=== PATIENT | male | born 1940 | race Caucasian/White ===

== ENCOUNTER 2024-03-31 13:49 | Inpatient (IN) | payer OTHER ==
[2024-03-31] MEDS ORDERED: ASPIRIN 81 MG CHEWABLE TABLET ONE (14:07)
[2024-03-31 14:30] LABS: Absolute Eosinophils 0.1 K/uL (0-0.5); Absolute Lymphocytes (CBC) 1.3 K/uL (0.7-4.9); Absolute Monocytes 0.5 K/uL (0.1-1.3); Absolute Neutrophil 2.8 K/uL (1.8-8.0); Basophils % 0.9 % (0-1.3); Eosinophils % 1.7 % (0-4.4); Hematocrit 41.5 % (39.6-49.0); Hemoglobin 13.9 g/dL (13.6-17.9); MCH 33.2 pg (27.0-35.0); MCHC 33.6 g/dL (32.0-36.0); MCV 98.9 fL (80-100); MPV 7.9 fL (7.6-11.3); Monocytes % 10.2 % (3.3-12.3); Neutrophils % 59.2 % (41.7-73.7); Platelets 195 thou/uL (152-406); Red Cell Distribution Width 13.9 % (12.1-15.2)
--- NOTE | 2024-03-31 14:43 | RAD REPORT ---
EXAM DESCRIPTION: RAD - Chest Single View - 03/31/2024 2:33 pm CLINICAL HISTORY: CHEST PAIN Chest pain. COMPARISON: <Comparisons> FINDINGS: Portable technique limits examination quality. The lungs are grossly clear. The heart is normal in size. No displaced fractures.Sternotomy wires. IMPRESSION: No acute intrathoracic process suspected.
[2024-03-31 14:46] LABS: Anion Gap 6.6 mEq/L (5.0-15.0); Magnesium 2.1 mg/dL (1.6-2.4); Potassium 4.6 mEq/L (3.5-5.1); Troponin High Sensitivity 5.9 pg/mL (<58.9)
--- NOTE | 2024-03-31 15:27 | RAD REPORT ---
EXAM DESCRIPTION: CT - Chest Abd Pelvis Wo Con - 03/31/2024 3:12 pm CLINICAL HISTORY: Chest and abdomen pain. CHEST PAIN COMPARISON: Chest Single View dated 03/31/2024; Lumbar Spine 3 Views dated 01/16/2024 TECHNIQUE: A limited noncontrast study was performed. All CT scans are performed using dose optimization technique as appropriate and may include automated exposure control or mA/KV adjustment according to patient size. FINDINGS: The lungs are clear.No pleural or pericardial effusion.No intrathoracic adenopathy. The liver, spleen, pancreas, adrenal glands are within normal limits. Cholecystectomy clips. There is a mild atrophic appearance to both kidneys. No bowel obstruction, free air, free fluid or abscess. The appendix is not identified as a discrete s tructure, however, no secondary findings of appendicitis are identified. No pathologic lymphadenopa thy in the abdomen or pelvis. Postsurgical hardware lumbar spine noted. IMPRESSION: No acute process is identified. Yrju-wd-ibrthosa bilateral renal atrophy.
--- NOTE | 2024-03-31 16:26 | P.HP ---
Certification for Inpatient Patient admitted to: Observation With expected LOS: <2 Midnights Patient will require the following post-hospital care: None Practitioner: I am a practitioner with admitting privileges, knowledge of patient current condition, hospital course, and medical plan of care. Services: Services provided to patient in accordance with Admission requirements found in Title 42 Section 412.3 of the Code of Federal Regulations Patient History Date of Service: 03/31/24 Reason for admission: Chest pain History of Present Illness: 83-year-old male with history of CAD previous four-vessel CABG in 2011, hypertension, gout presents emergency department chief complaint of chest pain. He reports an episode of chest pain on 03/29 that occurred at rest described as sharp/stabbing nonradiating that lasted for 5 to 10 minutes, this morning he had other episode while at rest that lasted 15 to 20 minutes and was more severe in nature associated with some "clamminess". He denies any shortness of breath, palpitations, nausea, vomiting or syncope. He had a four-vessel CABG in 2011 and has not had any further cardiac evaluation since then, he moved to this area about 1 year ago. Patient was evaluated in the emergency department initial high sensitive troponin normal 5.9, creatinine 1.75, no labs available for comparison unsure baseline although CT does show mild to moderate bilateral renal atrophy. ED provider wishes to be patient under observation for ACS rule out. - Past Medical/Surgical History -: CAD -: Hypertension -: Gout -: 2012 CABGfour-vessel Psychosocial/ Personal History: Lives at home with his and son - Family History Family History: Reviewed- Non-Contributory - Social History Smoking Status: Never smoker Alcohol use: No CD- Drugs: No Caffeine use: Yes Place of Residence: Home Review of Systems 10-point ROS is otherwise unremarkable Cardiovascular: Chest Pain Physical Examination - Physical Exam General: Alert, In no apparent distress, Oriented x3 HEENT: Atraumatic, PERRLA, Mucous membr. moist/pink, EOMI, Sclerae nonicteric Neck: Supple, 2+ carotid pulse no bruit, No LAD Respiratory: Clear to auscultation bilaterally, Normal air movement Cardiovascular: Regular rate/rhythm, Normal S1 S2 Gastrointestinal: Normal bowel sounds, No tenderness Musculoskeletal: No tenderness Integumentary: No rashes Neurological: Normal gait, Normal speech, Normal strength at 5/5 x4 extr, Normal tone, Normal affect - Studies Laboratory Data (last 24 hrs) 03/31/24 03/31/24 14:16 14:16 WBC 4.70 Hgb 13.9 Hct 41.5 Plt Count 195 Sodium 139 Potassium 4.6 BUN 28 H Creatinine 1.75 H Glucose 102 Magnesium 2.1 Assessment and Plan - Plan Assessment: Chest pain rule out ACS history of CAD with previous CABG-2011 SALAZAR/CKD Hypertension Hyperlipidemia Gout Plan: Chest pain rule out ACS history of CAD with previous CABG-2011 Trend troponins, monitor on telemetry Cardiology consult in place Continue aspirin, statin, ranolazine SALAZAR/CKD Atrophic kidneys on CT Suspect CKD although patient has no known history Continue gentle IV fluids overnight Recheck imaging the morning Hypertension Hyperlipidemia Home medications continued DVT PPX: Heparin subcu Code status: Full Discharge Plan: Home Plan to discharge in: 24 Hours - Advance Directives Does patient have a Living Will: No Does patient have a Durable POA for Healthcare: Yes - Code Status/Comfort Care Code Status Assessed: Yes (Full code) Critical Care: No Time Spent Managing Pts Care (In Minutes): 70
[2024-03-31] MEDS: NA CHLORIDE 0.9% 1,000 ML IV SCH (17:00)
[2024-03-31] MEDS ORDERED: NA CHLORIDE 0.9% 1,000 ML ONE (17:22)
--- NOTE | 2024-03-31 18:11 | ER ---
Nurse's Notes [facility] Name: Aaron Thomas Age: 83 yrs Sex: Male : 1940 Arrival Date: 03/31/2024 Time: 13:49 Bed 17 Private MD: Diagnosis: Chest pain, unspecified;Acute kidney failure, unspecified-acute vs chronic Presentation: 03/31 13:52 Chief complaint: Patient states: CP 1 episode on Saturday. Again, today. Coronavirus ll1 screen: Client denies travel out of the [place] in the last 14 days. At this time, the client does not indicate any symptoms associated with coronavirus-19. Ebola Screen: Patient denies travel to an Ebola-affected area in the 21 days before illness onset. Initial Sepsis Screen: Does the patient meet any 2 criteria? No. Patient's initial sepsis screen is negative. Does the patient have a suspected source of infection? No. Patient's initial sepsis screen is negative. Risk Assessment: Do you want to hurt yourself or someone else? Patient reports no desire to harm self or others. Onset of symptoms was March 29, 2024. 13:52 Method Of Arrival: Wheelchair ll1 13:52 Acuity: MAYCOL 3 ll1 Triage Assessment: 13:56 General: Appears in no apparent distress. Behavior is calm, cooperative, appropriate ll1 for age. Pain: Denies pain. Cardiovascular: Reports chest pain. Historical: - Allergies: 13:51 No Known Allergies; ll1 - PMHx: 13:51 Hypertensive disorder; Coronary atherosclerosis; ll1 - PSHx: 13:51 cabg; ll1 - Immunization history:: Adult Immunizations up to date. - Infectious Disease History:: Denies. - Social history:: Smoking status: Patient denies any tobacco usage or history of. Screenin:19 [facility] ED Fall Risk Assessment (Adult) History of falling in the last 3 months, mb9 including since admission No falls in past 3 months (0 pts) Confusion or Disorientation No (0 pts) Intoxicated or Sedated No (0 pts) Impaired Gait No (0 pts) Mobility Assist Device Used No (0 pt) Altered Elimination No (0 pt) Score/Fall Risk Level 0 - 2 = Low Risk Oriented to surroundings, Maintained a safe environment, Educated pt \T\ family on fall prevention, incl call for assistance when getting out of bed. Abuse screen: Denies threats or abuse. Nutritional screening: No deficits noted. Tuberculosis screening: No symptoms or risk factors identified. Assessment: 14:18 General: Appears in no apparent distress. Behavior is calm, cooperative. Pain: mb9 Complains of pain in chest Pain does not radiate. Pain currently is 0 out of 10 on a pain scale. Quality of pain is described as throbbing, Pain began suddenly. Neuro: Richards Agitation-Sedation Scale (RASS): 0 - Alert and Calm Level of Consciousness is awake, alert, obeys commands, Oriented to person, place, time, situation, Appropriate for age. Cardiovascular: Heart tones S1 S2 present Patient's skin is warm and dry. Rhythm is sinus bradycardia with 1st degree heart block. Respiratory: Airway is patent Respiratory effort is even, unlabored, Respiratory pattern is regular, symmetrical, Breath sounds are clear bilaterally. GI: Abdomen is round non-distended, Bowel sounds present X 4 quads. : No signs and/or symptoms were reported regarding the genitourinary system. EENT: No signs and/or symptoms were reported regarding the EENT system. Derm: Skin is pink, warm \T\ dry. Musculoskeletal: Range of motion: intact in all extremities. 15:37 Reassessment: No changes from previously documented assessment. Patient and/or family mb9 updated on plan of care and expected duration. Pain level reassessed. Patient is alert, oriented x 3, equal unlabored respirations, skin warm/dry/pink. Neuro: Reports dizziness. 17:00 Reassessment: No changes from previously documented assessment. Patient and/or family mb9 updated on plan of care and expected duration. Pain level reassessed. Patient is alert, oriented x 3, equal unlabored respirations, skin warm/dry/pink. Vital Signs: 13:52 BP 122 / 76; Pulse 60; Resp 17; Pulse Ox 100% ; Weight 97.07 kg; Height 5 ft. 9 in. ; ll1 Pain 1/10; 15:37 BP 109 / 52; Pulse 51; Resp 16; Pulse Ox 99% on R/A; mb9 17:00 BP 91 / 65; Pulse 52; Resp 18; Pulse Ox 100% on R/A; mb9 13:52 Body Mass Index 31.60 (97.07 kg, 175.26 cm) ll1 13:52 Pain Scale: Adult ll1 ED Course: 13:51 Patient arrived in ED. rg4 13:51 Arm band placed on. ll1 13:52 Lilly Rivera FNP-C is [facility]. kb 13:52 Taz Hong MD is Attending Physician. kb 13:53 Triage completed. ll1 13:54 Brittney Frost, RN is Primary Nurse. mb9 13:57 Patient placed in an exam room, on a stretcher. ll1 14:10 Initial lab(s) drawn, by me, sent to lab. EKG done, by ED staff, reviewed by Lilly MORALEZ. Inserted saline lock: 18 gauge in left antecubital area, using aseptic technique. 14:20 Placed in gown. Bed in low position. Call light in reach. Side rails up X 1. Provided adriana Education on: press call light if needing anything. Client placed on continuous cardiac and pulse oximetry monitoring. NIBP monitoring applied. cell feed department supervisor on. 14:35 XRAY Chest (1 view) In Process Unspecified. EDMS 15:14 CT Chest Abdomen Pelvis W/O Contrast In Process Unspecified. EDMS 15:52 Ken Hong MD is Hospitalizing Provider. kb 15:57 No provider procedures requiring assistance completed. mb9 15:57 Patient admitted, IV remains in place. mb9 Administered Medications: 14:18 Drug: Aspirin PO Chewable Tablet 324 mg PO once; 81 mg tablets x 4 Route: PO; mb9 Medication: 14:20 VIS not applicable for this client. mb9 Outcome: 15:54 Decision to Hospitalize by Provider. kb 20:02 Admitted to ER Hold. Please see [facility] for further documentation. mb9 20:02 Condition: stable 20:02 Instructed on the need for admit, 04/01 16:27 Patient left the ED. bp Signatures: Dispatcher [employer] EDMS Lilly Rivera FNP-C FNP-Drea Hodge rg4 Wes Martin, RN RN bp Rocco Gray RN RN ll1 Brittney Frost, RN RN adriana
--- NOTE | 2024-03-31 18:12 | EDPHYS ---
Physician Documentation [facility] Name: Aaron Thomas Age: 83 yrs Sex: Male : 1940 Arrival Date: 03/31/2024 Time: 13:49 Bed 17 Private MD: ED Physician Taz Hong HPI: 03/31 16:51 This 83 yrs old Male presents to ER via Wheelchair with complaints of Chest Pain. kb 16:51 Pt is an 83 year old male who presents for chest pain to left side of chest. States he kb had it on Saturday but it went away. States the pain came back worse today. States he was told he has something in his chest that could rupture if it got 2cm bigger so he wanted to make sure everything was ok. Historical: - Allergies: 13:51 No Known Allergies; ll1 - PMHx: 13:51 Hypertensive disorder; Coronary atherosclerosis; ll1 - PSHx: 13:51 cabg; ll1 - Immunization history:: Adult Immunizations up to date. - Infectious Disease History:: Denies. - Social history:: Smoking status: Patient denies any tobacco usage or history of. ROS: 14:47 Constitutional: As per HPI kb Exam: 14:10 Constitutional: This is a well developed, well nourished patient who is awake, alert, kb and in no acute distress. Head/Face: Normocephalic, atraumatic. ENT: Moist Mucous membranes Cardiovascular: Regular rate Respiratory: Respirations even and unlabored. No increased work of breathing. Talking in full sentences Abdomen/GI: Soft, non-tender. No distention Skin: Warm, dry with normal turgor. Normal color. MS/ Extremity: Pulses equal, no cyanosis. Neurovascular intact. Full, normal range of motion. Neuro: Awake and alert, GCS 15, oriented to person, place, time, and situation. Moves all extremities. Normal gait. 14:12 ECG was reviewed by the Attending Physician. kb Vital Signs: 13:52 BP 122 / 76; Pulse 60; Resp 17; Pulse Ox 100% ; Weight 97.07 kg; Height 5 ft. 9 in. ; ll1 Pain 1/10; 15:37 BP 109 / 52; Pulse 51; Resp 16; Pulse Ox 99% on R/A; mb9 17:00 BP 91 / 65; Pulse 52; Resp 18; Pulse Ox 100% on R/A; mb9 13:52 Body Mass Index 31.60 (97.07 kg, 175.26 cm) ll1 13:52 Pain Scale: Adult ll1 MDM: 13:52 Patient medically screened. kb 16:50 Differential diagnosis: acute mi, AAA, arrhythmia, abnormal electrolytes. Data kb reviewed: vital signs, nurses notes. Consideration of Admission/Observation Patient was admitted/placed on observation. Escalation of care including admission/observation considered. Management of patient was discussed with the following: Hospitalist: Hospitalist team, pt accepted for admission under Dr Hong. Historians other than the Patient: Spouse/Significant Other: . Care significantly affected by the following chronic conditions: Hypertension. Counseling: I had a detailed discussion with the patient and/or guardian regarding the historical points, exam findings, and any diagnostic results supporting the discharge/admit diagnosis, lab results, radiology results, the need for further work-up and treatment in the hospital. 03/31 13:54 Order name: Basic Metabolic Panel; Complete Time: 14:46 kb 03/31 13:54 Order name: CBC with Diff; Complete Time: 14:45 kb 03/31 13:54 Order name: Magnesium; Complete Time: 14:46 kb 03/31 13:54 Order name: NT PRO-BNP; Complete Time: 14:46 kb 03/31 13:54 Order name: Troponin HS; Complete Time: 14:46 kb 03/31 16:12 Order name: Troponin High Sensitivity EDUT 03/31 16:12 Order name: Troponin High Sensitivity; Complete Time: 21:25 EDMS 03/31 16:12 Order name: Troponin High Sensitivity; Complete Time: 13:16 EDMS 04/01 02:55 Order name: CBC with Automated Diff; Complete Time: 13:16 EDMS 04/01 03:02 Order name: Basic Metabolic Panel; Complete Time: 13:16 EDMS 04/01 03:02 Order name: Lipid Profile; Complete Time: 13:16 EDMS 03/31 13:54 Order name: XRAY Chest (1 view); Complete Time: 14:45 kb 03/31 14:54 Order name: CT Chest Abdomen Pelvis W/O Contrast; Complete Time: 15:36 kb 03/31 13:54 Order name: EKG; Complete Time: 13:55 kb 06/18 13:54 Order name: Cardiac monitoring; Complete Time: 14:18 kb 03/31 13:54 Order name: EKG - Nurse/Tech; Complete Time: 14:18 kb 03/31 13:54 Order name: IV Saline Lock; Complete Time: 14:18 kb 03/31 13:54 Order name: Labs collected and sent; Complete Time: 14:18 kb 03/31 13:54 Order name: O2 Per Protocol; Complete Time: 14:18 kb 03/31 13:54 Order name: O2 Sat Monitoring; Complete Time: 14:18 kb EC:12 Rate is 54 beats/min. Rhythm is regular. QRS [place] is Normal. MS interval is prolonged kb at 242 msec. QRS interval is normal at 96 msec. QT interval is normal at 402 msec. Administered Medications: 14:18 Drug: Aspirin PO Chewable Tablet 324 mg PO once; 81 mg tablets x 4 Route: PO; mb9 Disposition Summary: 03/31/24 15:54 Hospitalization Ordered Notes: Hospitalization Status: Observation kb Provider: Ken Hong Condition: Stable kb Problem: new kb Symptoms: are unchanged kb Bed/Room Type: Standard kb Location: Telemetry/MedSurg (observation)(04/01/24 14:57) bd Room Assignment: 220(04/01/24 14:57) bd Diagnosis - Chest pain, unspecified kb - Acute kidney failure, unspecified - acute vs chronic kb Forms: - Medication Reconciliation Form kb - SBAR form kb - Leadership Thank You Letter kb Addendum: 04/06/2024 08:56 Co-signature as Attending Physician, Taz Hong MD I reviewed the patient's care r n provided by the Advanced Practice Provider and agree with the diagnosis and treatment plan. Signatures: Dispatcher [employer] EDUT Lilly Rivera, FIELD INTERVIEWER-C FIELD INTERVIEWER-Ckb Sachi Urrtuia Roman, MD MD rn Lewis, Lynsay RN RN ll1 Margot, Brittney Shearer RN RN mb9 Corrections: (The following items were deleted from the chart) 03/31 13:55 13:55 BASIC METABOLIC PANEL+C.LAB.BRZ ordered. EDMS EDMS 13:55 13:55 CBC+H.LAB.BRZ ordered. EDMS EDMS 13:55 13:55 MAGNESIUM+C.LAB.BRZ ordered. EDMS EDMS 13:55 13:55 PROBNP+C.LAB.BRZ ordered. EDMS EDMS 13:55 13:55 Troponin High Sensitivity+C.LAB.BRZ ordered. EDMS EDMS 17:26 15:54 Telemetry/MedSurg (observation) kb bd 17: 15:54 kb bd 04/01 11:15 06 17:26 [facility] ER HOLD bd 04/01 11:15 03/31 17:26 ERHOLD- bd 04/01 11:18 11:15 Telemetry/MedSurg (observation) bd bd 11:18 11:15 221 bd bd 14:57 11:18 [facility] ER HOLD bd bd 14:57 11:18 ERHOLD- bd bd
[2024-03-31] MEDS ORDERED: TAMSULOSIN 0.4 MG SR CAP ONE (20:38)
[2024-03-31] MEDS ORDERED: ATORVASTATIN 40 MG TAB ONE (20:38)
[2024-03-31] MEDS ORDERED: HEPARIN 5000 UNIT/ML 1 ML VIAL ONE (20:39)
[2024-03-31] MEDS: HEPARIN 5000 UNIT/ML 1 ML VIAL SQ SCH (20:54)
[2024-03-31] MEDS: ATORVASTATIN 40 MG TAB PO SCH (20:54)
[2024-03-31] MEDS: TAMSULOSIN 0.4 MG SR CAP PO SCH (20:54)
[2024-04-01 02:47] LABS: Absolute Basophils 0.1 K/uL (0-0.5); Absolute Eosinophils 0.1 K/uL (0-0.5); Absolute Lymphocytes (CBC) 1.8 K/uL (0.7-4.9); Absolute Monocytes 0.5 K/uL (0.1-1.3); Absolute Neutrophil 3.7 K/uL (1.8-8.0); Basophils % 0.8 % (0-1.3); Eosinophils % 2.1 % (0-4.4); Hematocrit 38.7 % (39.6-49.0); Hemoglobin 13.5 g/dL (13.6-17.9); Lymphocytes % 29.3 % (15.3-44.8); MCHC 34.9 g/dL (32.0-36.0); MCV 97.5 fL (80-100); MPV 7.9 fL (7.6-11.3); Monocytes % 8.8 % (3.3-12.3); Nucleated Red Blood Cells % 0.4 % (0-0); Platelets 179 thou/uL (152-406); RBC Red Blood Cell Count 3.97 M/uL (4.33-5.43)
[2024-04-01 02:59] LABS: Troponin High Sensitivity 7.8 pg/mL (<58.9)
[2024-04-01] MEDS ORDERED: NA CHLORIDE 0.9% 1,000 ML ONE (06:03)
[2024-04-01] MEDS: ASPIRIN EC 81 MG TAB PO SCH (09:00)
[2024-04-01] MEDS: allopurinoL 100 MG TAB PO SCH (09:00)
[2024-04-01] MEDS ORDERED: HEPARIN 5000 UNIT/ML 1 ML VIAL ONE (09:12)
[2024-04-01] MEDS ORDERED: ASPIRIN EC 81 MG TAB PO ONE (09:12)
--- NOTE | 2024-04-01 13:37 | P.PN ---
Date of Service: 04/01/24 Subjective: No acute events overnight No further episode of chest pain ROS: 10 point ROS as noted above, otherwise negative Physical exam GEN: Alert, oriented, NAD HEENT: Normal conjunctiva, sclera anicteric CV: Regular rate and rhythm, no edema Pulm: Nonlabored respirations on room air ABD: Soft, nontender, nondistended MSK: No joint tenderness Integumentary: No rashes Neuro: Normal speech, normal affect Vitals reviewed Assessment: Chest pain rule out ACS history of CAD with previous CABG-2011 SALAZAR/CKD Hypertension Hyperlipidemia Gout Plan: Chest pain rule out ACS history of CAD with previous CABG-2011 Troponins trended negative, flat Cardiology saw patient recommends stress test inpatient Plan for stress test 04/02 Continue aspirin, statin, ranolazine SALAZAR/CKD Atrophic kidneys on CT Suspect CKD although patient has no known history Continue gentle IV fluids overnight-no significant improvement Monitor chemistry daily Hypertension Hyperlipidemia Home medications continued DVT PPX: Heparin subcu Code status: Lathe Turner Spent Managing Pts Care (In Minutes): 35
--- NOTE | 2024-04-01 16:56 | P.CNS ---
Date of Consult: 04/01/24 Chief Complaint: Chest pain History of Present Illness: Patient with PMH of CAD s/p 4V CABG in 2011 presented with chest pain that happened yesterday lasted for 10 minutes, felt shart in nature, no other associated symptoms, report that it has been going on/off for few months. Allergies No Known Allergies Allergy (Unverified 03/31/24 17:22) Home Medications: Atorvastatin Calcium 40 mg PO DAILY 03/31/24 Ranolazine [Ranolazine ER] 500 mg PO BID* 03/31/24 Tamsulosin HCl [Flomax] 0.4 mg PO DAILY 03/31/24 Temazepam 30 mg PO DAILY 03/31/24 allopurinoL [Allopurinol] 100 mg PO DAILY 03/31/24 - Past Medical/Surgical History -: CAD -: Hypertension -: Gout -: 2011 CABGfour-vessel Psychosocial/ Personal History: Lives at home with his and son - Social History Alcohol use: No CD- Drugs: No Caffeine use: Yes Place of Residence: Home Review of Systems 10-point ROS is otherwise unremarkable Physical Examination Temp Pulse Resp BP Pulse Ox 97.6 F 53 16 151/78 H 98 04/01/24 16:00 04/01/24 16:00 04/01/24 16:00 04/01/24 16:00 04/01/24 16:00 General: Alert, In no apparent distress HEENT: Atraumatic, PERRLA, Mucous membr. moist/pink, EOMI, Sclerae nonicteric Neck: Supple, 2+ carotid pulse no bruit, No LAD, Without JVD or thyroid abnormality Respiratory: Clear to auscultation bilaterally, Normal air movement Cardiovascular: Regular rate/rhythm, Normal S1 S2 Gastrointestinal: Normal bowel sounds, No tenderness Musculoskeletal: No tenderness Integumentary: No rashes Neurological: Normal gait, Normal speech, Normal tone, Normal affect Lymphatics: No axilla or inguinal lymphadenopathy - Problems (1) CAD (coronary artery disease) of artery bypass graft Current Visit: Yes Status: Acute Plan: patient with symptoms concerned for unstable angina. NPO after midnight for Lexiscan stress test in am. Continue ASA 81 mg daily Continue Ranexa 500 mg po BID add Imdur 30 mg daily (2) HTN (hypertension) Current Visit: Yes Status: Acute Plan: Patient BP is high, add Imdur 30 mg daily (3) HLD (hyperlipidemia) Current Visit: Yes Status: Acute Plan: Lipitor 40 mg daily
[2024-04-01] MEDS: TEMAZEPAM 15 MG CAP PO PRN (20:34)
[2024-04-02 08:25] LABS: Absolute Eosinophils 0.1 K/uL (0-0.5); Absolute Monocytes 0.4 K/uL (0.1-1.3); Absolute Neutrophil 3.5 K/uL (1.8-8.0); Eosinophils % 2.4 % (0-4.4); Hematocrit 40.8 % (39.6-49.0); Hemoglobin 13.9 g/dL (13.6-17.9); Lymphocytes % 20.6 % (15.3-44.8); MCH 33.4 pg (27.0-35.0); MCHC 34.1 g/dL (32.0-36.0); MCV 98.1 fL (80-100); MPV 7.8 fL (7.6-11.3); Monocytes % 7.9 % (3.3-12.3); Neutrophils % 68.1 % (41.7-73.7); Platelets 182 thou/uL (152-406); RBC Red Blood Cell Count 4.16 M/uL (4.33-5.43); Red Cell Distribution Width 14.1 % (12.1-15.2)
[2024-04-02 08:48] LABS: Anion Gap 8.4 mEq/L (5.0-15.0); Potassium 4.4 mEq/L (3.5-5.1)
[2024-04-02] MEDS ORDERED: REGADENOSON 0.4 MG/5 ML SYR IV ONE (09:40)
--- NOTE | 2024-04-02 11:12 | RAD REPORT ---
EXAM DESCRIPTION: NM - Rest Stress Cardiac Imaging - 04/02/2024 10:18 am CLINICAL HISTORY: CP COMPARISON: No comparisons TECHNIQUE: The patient was administered approximately 10.7 mCi of Tc 99m Sestamibi prior to resting SPECT imaging of the heart. The patient was then administered approximately 31.6 mCi of Tc 99m Sestam ibi following exercise or pharmacologic stress. Multiplanar SPECT images were reviewed. FINDINGS: Moderate lateral wall mid to apical reversible defect suggesting ischemia. Small fixed def ect along the mid to basal septal and large fixed defect along the inferior wall, suggesting sequelae of prior infarct. The end diastolic volume is 78 ml, the end systolic volume is 26 ml, and the ejection fraction is 66 %. IMPRESSION: Moderate lateral wall mid to apical segment reversible defect suggesting myocardial isch emia. Other fixed defects involving the septum and inferior wall, suggesting prior infarct. Normal left ventricular ejection fraction. Decreased end systolic volume, may relate to longstanding hypertension.
--- NOTE | 2024-04-02 11:43 | P.PN ---
Subjective Date of Service: 04/02/24 Chief Complaint: Chest pain Subjective: No new changes, No C/O voiced, Tolerating diet, Ambulating, Improving Review of Systems 10-point ROS is otherwise unremarkable Physical Examination - Vital Signs Temperature: 97.5 F Blood Pressure: 146/71 Pulse: 53 Respirations: 15 Pulse Ox (%): 99 - Physical Exam General: Alert, In no apparent distress HEENT: Atraumatic, PERRLA, EOMI Neck: Supple, JVD not distended Respiratory: Clear to auscultation bilaterally, Normal air movement Cardiovascular: Regular rate/rhythm, Normal S1 S2 Gastrointestinal: Normal bowel sounds, No tenderness Musculoskeletal: No tenderness Integumentary: No rashes Neurological: Normal speech, Normal tone, Normal affect Lymphatics: No axilla or inguinal lymphadenopathy - Studies Laboratory Data (last 24 hrs) 04/02/24 04/02/24 08:14 08:14 WBC 5.10 Hgb 13.9 Hct 40.8 Plt Count 182 Sodium 139 Potassium 4.4 BUN 30 H Creatinine 1.74 H Glucose 108 H Medications List Reviewed: Yes Assessment And Plan - Current Problems (Diagnosis) (1) CAD (coronary artery disease) of artery bypass graft Current Visit: Yes Status: Acute Plan: patient with symptoms concerned for unstable angina. Patient stress test is abnormal showing ischemia in lateral wall NPO after midnight for Cath in am Continue ASA 81 mg daily Start Plavix 75 mg daily Continue Ranexa 500 mg po BID add Imdur 30 mg daily (2) HTN (hypertension) Current Visit: Yes Status: Acute Plan: Patient BP is high, add Imdur 30 mg daily (3) HLD (hyperlipidemia) Current Visit: Yes Status: Acute Plan: Lipitor 40 mg daily
--- NOTE | 2024-04-02 11:51 | TREADPHA ---
DX: CHEST PAIN Date of Study: 04/02/2024 Ht: 5' 9 " Wt: 214 lb 0 oz Consulting Physician: MARCIO MEDICATIONS: ZYLOPRIM, ASPIRIN, LIPITOR, HEPARIN, RANEXA, FLOMAX, RESTORIL HISTORY: 83 YEAR OLD MALE WITH COMPLAINTS OF CHEST PAIN. HISTORY OF TRIPLE BYPASS, HYPERTENSION, DIABETES MELLITUS, HIGH CHOLERTEROL. PATIENT IS A NON SMOKER, NON DRINKER AND DOES NOT CONSUME DRUGS. PHYSICIAL EXAMINATION: RESTING B.P.: 125/63 RESTING H.R.: 52 RESTING EKG: SINUS BRADYCARDIA PROTOCOL: PHARMACOLOGIC EXERCISE TIME: 3:30 B.P. AT PEAK STRESS: 109/51 IMPRESSION: LEXISCAN INJECTED. CARDIOLITE INJECTED - SEE NUCLEAR MEDICINE REPORT. NO CHEST PAIN. NO VENTRICULAR TACHYCARDIA, NO SUPRAVENTRICULAR TACHYCARDIA. PREMATURE VENTRICULAR COMPLEXES NOTED DURING THE PROCEDURE AND IN RECOVERY.
[2024-04-02] MEDS: CLOPIDOGREL 75 MG TABLET PO ONE (13:16)
--- NOTE | 2024-04-02 13:39 | P.PN ---
Date of Service: 04/02/24 Subjective: No acute events overnight No further episode of chest pain ROS: 10 point ROS as noted above, otherwise negative Physical exam GEN: Alert, oriented, NAD HEENT: Normal conjunctiva, sclera anicteric CV: Regular rate and rhythm, no edema Pulm: Nonlabored respirations on room air ABD: Soft, nontender, nondistended MSK: No joint tenderness Integumentary: No rashes Neuro: Normal speech, normal affect Vitals reviewed Assessment: Chest pain rule out ACS history of CAD with previous CABG-2011 SALAZAR/CKD Hypertension Hyperlipidemia Gout Plan: Chest pain rule out ACS history of CAD with previous CABG-2011 Troponins trended negative, flat Continue aspirin, statin, ranolazine Stress test showed moderate lateral wall mid to apical segment reversible defect suggesting myocardial ischemia Started on Plavix, Imdur Plan for heart cath 04/03 SALAZAR/CKD Atrophic kidneys on CT Suspect CKD although patient has no known history Continue gentle IV fluids overnight-no significant improvement Monitor chemistry daily Hypertension Hyperlipidemia Home medications continued DVT PPX: Heparin subcu 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
--- NOTE | 2024-04-02 16:21 | EKG ---
Test Date: 2024-03-31 Test Time: 14:06:52 E M Assembler: YOMI MEASUREMENT RESULTS: Intervals: Rate: 54 RI: 242 QRSD: 96 QT: 424 QTc: 402 [place]: P: 12 RI: 242 QRS: -11 T: 18 INTERPRETIVE STATEMENTS: Sinus bradycardia with 1st degree AV block Otherwise normal ECG No previous ECG available for comparison Electronically Signed On 04-02-24 16:17:28 CDT by Jethro Hills
[2024-04-03 04:07] LABS: Hematocrit 39.7 % (39.6-49.0); Hemoglobin 13.9 g/dL (13.6-17.9); MCHC 35.1 g/dL (32.0-36.0); MPV 7.7 fL (7.6-11.3); Platelets 199 thou/uL (152-406); RBC Red Blood Cell Count 4.09 M/uL (4.33-5.43); Red Cell Distribution Width 13.8 % (12.1-15.2)
[2024-04-03 04:10] LABS: Anion Gap 6.9 mEq/L (5.0-15.0); Potassium 3.9 mEq/L (3.5-5.1)
[2024-04-03] MEDS: ISOSORBIDE MONO SR 30 MG TAB PO SCH (08:41)
[2024-04-03] MEDS: ISOSORBIDE MONO SR 30 MG TAB PO ONE (08:41)
[2024-04-03] MEDS: CLOPIDOGREL 75 MG TABLET PO SCH (08:41)
[2024-04-03] MEDS ORDERED: HEPA 1000U/500MLS 2,000 UNIT/1,000 ML BAG IV ONE (12:27)
[2024-04-03] MEDS ORDERED: FENTANYL CITR 100 MCG/2 ML ONE (12:28)
[2024-04-03] MEDS ORDERED: TICAGRELOR 90 MG TABLET PO ONE (12:28)
[2024-04-03] MEDS ORDERED: LIDOCAINE 1% 20 ML MDV ONE (12:28)
[2024-04-03] MEDS ORDERED: HEPARIN 10,000 UNIT/10 ML VIAL IV ONE (12:28)
[2024-04-03] MEDS ORDERED: MIDAZOLAM HCL 2 MG/2 ML INJ ONE (12:28)
[2024-04-03] MEDS ORDERED: CLOPIDOGREL 75 MG TABLET ONE (12:28)
[2024-04-03] MEDS ORDERED: ASPIRIN 325 MG TAB ONE (12:29)
[2024-04-03] MEDS ORDERED: ATROPINE SULF 1 MG/10 ML SYR IV ONE (12:30)
[2024-04-03] MEDS ORDERED: FLUMAZENIL 0.1 MG/ML (5 mL VIAL) IV ONE (12:31)
[2024-04-03] MEDS ORDERED: NALOXONE 0.4 MG/ML VIAL ONE (12:31)
[2024-04-03] MEDS: NA CHLORIDE 0.9% 500 ML ONE (12:34)
[2024-04-03] MEDS ORDERED: HEPA 1000U/500MLS 1,000 UNIT/500 ML BAG IV ONE (13:29)
--- NOTE | 2024-04-03 13:53 | PN ---
Date of Progress Note: 04/03/2024 Subjective: Seen by bedside, is having on and off chest pain. Stress test showed moderate size reve rsible ischemia. Review of Systems: Positive for chest pain. No shortness of breath. No nausea, vomiting, diarrhea. No abdominal pain. No dysuria, polyuria, or urinary urgency. All other systems were reviewed, they are negative. Physical Examination: Vital Signs: Reviewed. Head and Neck: Pupils are equal, reactive to light. Intact eye movements. No JVD. No cervical lym phadenopathy. Neck is supple. Thyroid is not enlarged. Lungs: Clear to auscultation bilaterally. No rhonchi, wheezing, or crackles. No accessory muscle u se. Heart: Regular. No extra sounds. Abdomen: Soft, nontender. Bowel sounds positive. No organomegaly. No masses or hernia. No rigidi ty or rebound. Extremities: No clubbing, cyanosis. Intact pulses. Skin: No rash. Neuro: Alert, awake, and oriented x3. No acute focal deficits appreciated. Investigations: Troponins are negative. BUN 30, creatinine 0.74. Assessment/recommendations: 1.Unstable angina with abnormal stress test. The patient is n.p.o. Plan for coronary angiogram wit h bypass graft study today and intervene accordingly. 2.Dyslipidemia. Continue Lipitor 40 mg at bedtime. 3.Chronic renal failure. Creatinine is stable. We will try to use a minimal amount of contrast with the procedure and with hydration. 4.Hypertension. Blood pressure is controlled. SR/MODL Voice ID: [id number] Report ID: [id number]
[2024-04-03] MEDS ORDERED: NITROGLYCERIN 0.4 MG/TAB SL PRN (14:09)
[2024-04-03] MEDS ORDERED: ACETAMINOPHEN 325 MG TABLET PO PRN (14:09)
--- NOTE | 2024-04-03 16:05 | OP ---
Date of Procedure: 04/03/2024 Surgeon: ARMANDO RICHARDSON Procedure Performed: Selective coronary angiogram with bypass graft study. Indication: Unstable angina. Abnormal stress test. Access: Right common femoral artery 6-Barbadian closed with 6-Barbadian Angio-Seal. Complications: None. Bleeding: Less than 50 mL. Anesthesia: Total sedation time was 50 minutes. Used fentanyl and Versed. Total amount of contrast used was 70 mL. Description Of Procedure: After risks and benefits and alternatives were explained, patient agreed t o procedure and signed informed consent. Patient was brought into cardiac catheterization laboratory , prepped and draped in the usual sterile fashion. Then, I accessed the right common femoral artery using micropuncture kit, ultrasound guidance, and fluoroscopy, placed 6-Barbadian Mauldin sheath and to ok a 6-Barbadian JL4 catheter into the aortic root and engaged the left main, took standard views and th en engaged the RCA with a 6-Barbadian JR4 catheter and took standard views of the RCA. SVG grafts, they were all occluded and then using an YESSENIA catheter, engaged GEORGES and took standard views and the jake ter was pushed over the wire into the LV, measured the LVEDP. Pullback did not record any gradient a nd then removed the catheter and the sheath 6-Barbadian, Angio-Seal was used for closure with good hemos tasis. Findings: 1.Left main; large and normal. 2.LAD; proximal diffuse 40% stenosis, then after diagonal takeoff, it become YOUTH MINISTRY DIRECTOR. Diagonal has mid 70% stenosis. 3.Ramus intermedius has mid 70% stenosis. 4.Left circumflex; large vessel, 70% stenosis proximally and 90% mid to distal. 5.RCA; totally occluded ostial proximally. Bypass Graft Study: 1.Patent GEORGES to LAD. 2.Occluded SVG to RCA. 3.Occluded SVG to ramus. 4.Occluded SVG to left circumflex. 5.Elevated LVEDP at 15 mmHg. Conclusion: Severe [place] coronary artery disease with occluded 3 SVG grafts and patent GEORGES and the LAD is giving collaterals to the RCA. Recommendation: Plan for a PCI of the ramus left circumflex and the diagonal 1 branch on staged basi s. We did not do any of those today due to the contrast load, given the fact that he has significant chronic kidney disease, I had to stop the procedure, given that there were no critical lesions, and we will plan on bringing him back on Saturday to fix first the circ and ramus and then we will fix the diagonal at later occasion. /CARMEN Voice ID: [id number] Report ID: [id number]
[2024-04-03 16:32] VITALS: BMI 31.6
--- NOTE | 2024-04-03 17:59 | P.PN ---
Date of Service: 04/03/24 Subjective: No acute events overnight No further episode of chest pain Heart cath today +, needs intervention but staged ROS: 10 point ROS as noted above, otherwise negative Physical exam GEN: Alert, oriented, NAD HEENT: Normal conjunctiva, sclera anicteric CV: Regular rate and rhythm, no edema Pulm: Nonlabored respirations on room air ABD: Soft, nontender, nondistended MSK: No joint tenderness Integumentary: No rashes Neuro: Normal speech, normal affect Vitals reviewed Assessment: Chest pain rule out ACS history of CAD with previous CABG-2011 SALAZAR/CKD Hypertension Hyperlipidemia Gout Plan: Chest pain rule out ACS history of CAD with previous CABG-2011 Troponins trended negative, flat Continue aspirin, statin, ranolazine Stress test showed moderate lateral wall mid to apical segment reversible defect suggesting myocardial ischemia Started on Plavix, Imdur Heart cath 04/03 with indings: 1. Left main; large and normal. 2. LAD; proximal diffuse 40% stenosis, then after diagonal takeoff, it become PECAN HULLER. Diagonal has mid 70% stenosis. 3. Ramus intermedius has mid 70% stenosis. 4. Left circumflex; large vessel, 70% stenosis proximally and 90% mid to distal. 5. RCA; totally occluded ostial proximally. Bypass Graft Study: 1. Patent GEORGES to LAD. 2. Occluded SVG to RCA. 3. Occluded SVG to ramus. 4. Occluded SVG to left circumflex. 5. Elevated LVEDP at 15 mmHg. 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
--- NOTE | 2024-04-04 07:54 | P.PN ---
Date of Service: 04/04/24 Subjective: No acute events overnight No further episode of chest pain Had heart cath yesterday, needs staged cath saturday for intervention ROS: 10 point ROS as noted above, otherwise negative Physical exam GEN: Alert, oriented, NAD HEENT: Normal conjunctiva, sclera anicteric CV: Regular rate and rhythm, no edema Pulm: Nonlabored respirations on room air ABD: Soft, nontender, nondistended MSK: No joint tenderness Integumentary: No rashes Neuro: Normal speech, normal affect Vitals reviewed Assessment: Chest pain rule out ACS history of CAD with previous CABG-2011 SALAZAR/CKD Hypertension Hyperlipidemia Gout Plan: Chest pain rule out ACS history of CAD with previous CABG-2011 Troponins trended negative, flat Continue aspirin, statin, ranolazine Stress test showed moderate lateral wall mid to apical segment reversible defect suggesting myocardial ischemia Started on Plavix, Imdur Heart cath 04/03 with indings as follows: 1. Left main; large and normal. 2. LAD; proximal diffuse 40% stenosis, then after diagonal takeoff, it become PAINTING WORKER. Diagonal has mid 70% stenosis. 3. Ramus intermedius has mid 70% stenosis. 4. Left circumflex; large vessel, 70% stenosis proximally and 90% mid to distal. 5. RCA; totally occluded ostial proximally. Bypass Graft Study: 1. Patent GEORGES to LAD. 2. Occluded SVG to RCA. 3. Occluded SVG to ramus. 4. Occluded SVG to left circumflex. 5. Elevated LVEDP at 15 mmHg. Plan for a PCI of the ramus left circumflex and the diagonal 1 branch on staged basis Plan is for staged cath on Friday 04/06 for intervention and will need additional staged cath at a later date outpatient Patient awaiting cath/intervention, NPO after midnight on saturday-order placed SALAZAR/CKD Atrophic kidneys on CT Suspect CKD although patient has no known history Continue gentle IV fluids overnight-no significant improvement Monitor chemistry daily Nephrology now consulted given need for contrast with heart cath and planned staged heart cath Saturday Hypertension Hyperlipidemia Home medications continued DVT PPX: Heparin subcu Code status: Backside Grinder Spent Managing Pts Care (In Minutes): 35
[2024-04-04 08:03] LABS: Hematocrit 37.9 % (39.6-49.0); Hemoglobin 13.2 g/dL (13.6-17.9); MCH 34.2 pg (27.0-35.0); MCHC 34.8 g/dL (32.0-36.0); MCV 98.4 fL (80-100); MPV 7.8 fL (7.6-11.3); Platelets 163 thou/uL (152-406); RBC Red Blood Cell Count 3.85 M/uL (4.33-5.43); Red Cell Distribution Width 14.1 % (12.1-15.2)
[2024-04-04 08:14] LABS: Anion Gap 7.1 mEq/L (5.0-15.0); Potassium 4.1 mEq/L (3.5-5.1)
--- NOTE | 2024-04-04 19:22 | CON ---
Date of Consultation: 04/04/2024 Reason For Consultation: Chronic renal insufficiency. History Of Present Illness: Mr. Thomas is an 83-year-old male with past medical history significant fo r history of coronary artery disease, status post CABG in the past, presented to [facility] because of ongoing chest pain. He reported an episode of chest pain that occurred at rest, which he describes as sharp, stabbing, nonradiating, and he has been admitted to the hospital since the March and has been evaluated by Dr. Hills and underwent a heart catheterization yesterday. He was found to have occluded bypass graft to his obtuse marginal as well as his right RCA. The patient is planned to have staged catheterization to help improve his coronary circulation. However, Nephrology is being consulted for management of his CKD and to optimize his renal status. The patient denies a ny chest pain, shortness of breath, and feels okay at this time. Past Medical History: Significant for history of coronary artery disease, hypertension, history of s tatus post CABG, gout. Social History: He lives at home with his and son. No history of alcohol or current drug abuse reported. Review of Systems: As per history of present illness. Medications: Home medications have been reviewed. Current medications include allopurinol, aspirin, Plavix, heparin for DVT prophylaxis, isosorbide 30 mg a day, normal saline at 75 cc an hours, Ranexa, tamsulosin, and Restoril. Physical Examination: Vital Signs: Showing temperature of 98, pulse rate of 70, respirations of 16, blood pressure 101/62. General: He appears in no acute distress. HEENT: Atraumatic head. Lungs: Clear to auscultation. Abdomen: Soft and nontender. Extremities: Showed no evidence of edema. Laboratory Data: At this time showing creatinine stable at 1.7, sodium of 139, and potassium of 4.1. CBC showing stable hemoglobin, hematocrit, and platelet count. Impression: Chronic renal insufficiency, currently with overall stable renal function. Discussed wi th him the risk of contrast-induced nephropathy. The patient is on hydration and blood pressures are stable. No acute congestive heart failure symptoms noted. Volume status seems euvolemic. I will c ontinue with IV fluids and go ahead and Mucomyst for renal protection in anticipation of contrast adm inistration. Otherwise, his blood pressure seems to be stable and his hemoglobin and other level see ms to be stable. We discussed with him the risk of contrast-induced nephropathy. The patient unders tands and we will continue to monitor him closely. Thank you very much for this consultation. Please do not hesitate to call us with any questions or c oncerns. RAFAT/CARMEN Voice ID: [id number] Report ID: [id number]
[2024-04-04] MEDS: ACETYLCYST 20% 800 MG/4 ML VIAL PO SCH (20:35)
[2024-04-05 07:44] LABS: Hematocrit 34.3 % (39.6-49.0); Hemoglobin 12.2 g/dL (13.6-17.9); MCH 35.1 pg (27.0-35.0); MCHC 35.5 g/dL (32.0-36.0); MCV 98.8 fL (80-100); MPV 7.9 fL (7.6-11.3); Platelets 149 thou/uL (152-406); RBC Red Blood Cell Count 3.47 M/uL (4.33-5.43)
[2024-04-05 08:02] LABS: Anion Gap 5.9 mEq/L (5.0-15.0); Potassium 3.9 mEq/L (3.5-5.1)
--- NOTE | 2024-04-05 14:35 | PN ---
Date of Progress Note: 04/05/2024 Subjective: The patient was seen and examined at bedside. He has intermittent episodes of chest ganesh n, but denies any other issues at this time. Blood pressures continued to be on the lower side. Physical Examination: Vital Signs: Have been reviewed. General: He appears in no acute distress. Lungs: Clear to auscultation. Abdomen: Soft, nontender. Extremities: Showed no evidence of edema. Laboratory Data: Showing creatinine improving to 1.59, BUN of 25. Other electrolytes are stable. H emoglobin, hematocrit, and platelet count have remained stable. Current Medications: Reviewed. Impression: 1.Acute on chronic renal insufficiency, currently with stable renal function overall. The patient h as been optimized in terms of his renal status for contrast administration. Discussed risk of contra st-induced nephropathy. 2.Hypotension. Continue IV fluids. 3.Coronary artery disease with obstructive cardiomyopathy. The patient is planned for a stent place ment. Continue low-dose isosorbide and Plavix at this time. Plan: Overall, patient is clinically stable. Continue to monitor closely. Follow up on labs and av oid further hypotension and nephrotoxins. VV/MODL Voice ID: [id number] Report ID: [id number]
--- NOTE | 2024-04-05 16:06 | P.PN ---
Date of Service: 04/05/24 Subjective: Continue left-sided chest pain Saturday needs staged heart cath intervention No new complaints ROS: 10 point ROS as noted above, otherwise negative Physical exam GEN: AAOx3, NAD, conversing well HEENT: Normal conjunctiva, sclera anicteric CV: RRR, S1-S2 present, no edema Pulm: Nonlabored respirations, symmetrical chest wall movement, on room air ABD: Soft and benign on palpation, NT/ND MSK: No joint tenderness Integumentary: No rashes Neuro: Normal speech, normal affect Vitals reviewed Assessment: Chest pain rule out ACS history of CAD with previous CABG-2011 SALAZAR/CKD Hypertension Hyperlipidemia Gout Plan: Chest pain rule out ACS history of CAD with previous CABG-2011 Troponins trended negative, flat Continue aspirin, statin, ranolazine Stress test showed moderate lateral wall mid to apical segment reversible defect suggesting myocardial ischemia Started on Plavix, Imdur Heart cath 04/03 with indings as follows: 1. Left main; large and normal. 2. LAD; proximal diffuse 40% stenosis, then after diagonal takeoff, it become HEMODIALYSIS PATIENT CARE SPECIALIST. Diagonal has mid 70% stenosis. 3. Ramus intermedius has mid 70% stenosis. 4. Left circumflex; large vessel, 70% stenosis proximally and 90% mid to distal. 5. RCA; totally occluded ostial proximally. Bypass Graft Study: 1. Patent GEORGES to LAD. 2. Occluded SVG to RCA. 3. Occluded SVG to ramus. 4. Occluded SVG to left circumflex. 5. Elevated LVEDP at 15 mmHg. Plan for a PCI of the ramus left circumflex and the diagonal 1 branch on staged basis Plan is for staged cath on Friday 04/06 for intervention and will need additional staged cath at a later date outpatient Patient awaiting cath/intervention, NPO after midnight on saturday-order placed SALAZAR/CKD Atrophic kidneys on CT Suspect CKD although patient has no known history Continue gentle IV fluids Monitor chemistry daily- stable Nephrology-mucomyst (consulted given need for contrast with heart cath and planned staged heart cath Saturday) Hypertension Hyperlipidemia Home medications continued DVT PPX: Heparin subcu Code status: Full
--- NOTE | 2024-04-05 18:35 | PN ---
Date of Progress Note: 04/05/2024 Subjective: Seen by bedside. He has been having on and off chest pain still. Review of Systems: No active pain at the present time. No nausea, vomiting, or diarrhea. No abdominal pain. No dysuri a, polyuria, or urinary urgency. All other systems reviewed are negative. Physical Examination: Vital Signs: Reviewed. Head and Neck: Pupils are equal, reactive to light. Intact eye movements. No JVD. No cervical lym phadenopathy. Neck: Supple. Thyroid is not enlarged. Lungs: Clear to auscultation bilaterally. No rhonchi, wheezing, rales, or crackles. No accessory m uscle use. Heart: Regular rate and rhythm. No extra sounds. Abdomen: Soft, nontender. Bowel sounds positive. No organomegaly. No masses or hernia. No rigidi ty or rebound. Extremities: No clubbing, clubbing, or cyanosis. Intact pulses. Skin: No rash. Neuro: Alert, awake, and oriented x3. No acute focal deficits appreciated. Investigations: BUN 25, creatinine 1.59. Hemoglobin is 12.2. Assessment And Recommendations: 1.Unstable angina. Significant coronary artery disease is present. Status post coronary angiogram. He will need intervention of his circ and the diagonal branch. We will plan for fixing the circ to mays. The procedure was not done on Saturday due to the contrast load and the chronic kidney disease . Keep n.p.o. past midnight. We will plan for PCI of the circumflex tomorrow. Continue aspirin and Plavix. 2.Dyslipidemia. Continue Lipitor 40 mg q.h.s. 3.Chronic kidney disease. This is stabilizing. His creatinine is better. We will plan for PCI of the left circumflex tomorrow. 4.Hypertension. Blood pressure is controlled. SR/MODL Voice ID: [id number] Report ID: [id number]
[2024-04-06 08:56] LABS: Absolute Eosinophils 0.1 K/uL (0-0.5); Absolute Monocytes 0.6 K/uL (0.1-1.3); Absolute Neutrophil 4.3 K/uL (1.8-8.0); Basophils % 0.5 % (0-1.3); Eosinophils % 1.6 % (0-4.4); Hematocrit 34.5 % (39.6-49.0); Lymphocytes % 16.1 % (15.3-44.8); MCH 34.5 pg (27.0-35.0); MCHC 34.9 g/dL (32.0-36.0); MCV 98.9 fL (80-100); MPV 7.9 fL (7.6-11.3); Monocytes % 10.5 % (3.3-12.3); Neutrophils % 71.3 % (41.7-73.7); Platelets 146 thou/uL (152-406); RBC Red Blood Cell Count 3.49 M/uL (4.33-5.43); Red Cell Distribution Width 13.8 % (12.1-15.2)
[2024-04-06 09:16] LABS: Magnesium 1.7 mg/dL (1.6-2.4); Phosphorus 2.4 mg/dL (2.5-4.9)
[2024-04-06 10:09] LABS: PT Prothrombin Time 11.6 SECONDS (9.4-12.5); PTT, Activated Partial Thromb 32.1 SECONDS (24.3-36.9); Protime INR 1.06
[2024-04-06] MEDS ORDERED: LIDOCAINE 1% 20 ML MDV ONE (14:40)
[2024-04-06] MEDS ORDERED: HEPA 1000U/500MLS 2,000 UNIT/1,000 ML BAG IV ONE (14:41)
[2024-04-06] MEDS ORDERED: VERAPAMIL HCL 10 MG/4 ML VIAL IV ONE (15:02)
[2024-04-06] MEDS ORDERED: MIDAZOLAM HCL 2 MG/2 ML INJ ONE (15:03)
[2024-04-06] MEDS ORDERED: TICAGRELOR 90 MG TABLET PO ONE (15:03)
[2024-04-06] MEDS ORDERED: ATROPINE SULF 1 MG/10 ML SYR IV ONE (15:03)
[2024-04-06] MEDS ORDERED: FENTANYL CITR 100 MCG/2 ML ONE (15:03)
[2024-04-06] MEDS ORDERED: HEPARIN 5000 UNIT/ML 1 ML VIAL ONE (15:03)
[2024-04-06] MEDS ORDERED: CLOPIDOGREL 75 MG TABLET ONE (15:04)
[2024-04-06] MEDS ORDERED: ASPIRIN 325 MG TAB ONE (15:04)
[2024-04-06] MEDS ORDERED: HEPARIN 10,000 UNIT/10 ML VIAL IV ONE (15:04)
[2024-04-06] MEDS ORDERED: NA CHLORIDE 0.9% 500 ML ONE (15:05)
--- NOTE | 2024-04-06 17:50 | OP ---
Date of Procedure: 04/06/2024 Surgeon: ARMANDO RICHARDSON Procedures Performed: 1.Selective coronary angiogram. 2.PCI of severe proximal to mid left circumflex, I used 2.5 x 16 mm Synergy drug-eluting stent overl apped distally using 2.25 x 8 mm Synergy drug-eluting stent. 3.PCI of severe proximal ramus intermedius stenosis, I used 2.5 x 60 mm Synergy drug-eluting stent. Indication: Unstable angina and known coronary artery disease. Access: Right radial artery 6-Wallisian closed with TR band. Complications: None. Bleeding: Less than 50 mL. Anesthesia: Total sedation time was 50 minutes. I used fentanyl and Versed. Description Of Procedure: After risks, benefits, and alternatives were explained, the patient agreed to procedure and signed informed consent. The [facility], prepped and draped in the usual sterile fashion. Then, I accessed right radial artery using pediatric micropuncture kit, placed a 6-Wallisian Slender sheath and took 6-Wallisian EBU3.5 guide into the aortic root, engaged left main, took standard views, and gave systemic heparin to assure ACT level a crystal 250 throughout the procedure, took Runthrough wire into the left circumflex artery, placed it di iveth and using a 2.5 balloon, the lesions were pre-dilated and expanded easily. I then placed 2.5 x 60 mm Synergy drug-eluting stent across the left circumflex stenosis and still some significant dis ease with some edge dissection, so I placed 2.25 x 8 mm Synergy drug-eluting stent with excellent exp ansion. Then I took a Runthrough wire out and placed it within the ramus intermedius and performed b alloon angioplasty using 2.5 x 8 noncompliant balloon and then placed 2.5 x 60 mm Synergy drug-elutin g stent with excellent expansion. Final angiogram after removing the wire was satisfactory and then I removed the catheter and the sheath, placed TR band with good hemostasis. Findings: 1.Left main is normal. 2.LAD; proximal 40% and then mid PLANNING MANAGEMENT IT SPECIALIST and diagonal has mid 70% to 80% stenosis. 3.Ramus intermedius has proximal 80% stenosis. 4.Left circumflex; mid 90% stenosis, status post successful PCI as above of the ramus and the left c ircumflex. 5.RCA was not injected, known to be occluded. Conclusion: 1.Severe left circumflex and ramus intermedius stenosis, status post successful PCI as above. 2.Severe diagonal branch stenosis. We will plan for staged PCI in 6 weeks. SR/MODL Voice ID: [id number] Report ID: [id number]
--- NOTE | 2024-04-06 19:04 | P.PN ---
Date of Service: 04/06/24 Subjective: Awake and no new complaints NPO this AM Awaiting heart cath ROS: 10 point ROS as noted above, otherwise negative Physical exam GEN: Awake, alert and oriented x3, NAD, conversing well HEENT: Normal conjunctiva, sclera anicteric CV: Regular rate and rhythm, normal S1-S2 present, no edema Pulm: Nonlabored respirations, symmetrical chest wall movement, on room air ABD: Soft and benign on palpation, NT/ND, normal active bowel sounds MSK: No joint tenderness Integumentary: No rashes Neuro: Normal speech, normal affect Vitals reviewed Assessment: Chest pain rule out ACS history of CAD with previous CABG-2011 SALAZAR/CKD Hypertension Hyperlipidemia Gout Plan: Chest pain rule out ACS history of CAD with previous CABG-2011 S/P PCI to Ramus and left circumflex Troponins trended negative, flat Continue aspirin, statin, ranolazine Stress test showed moderate lateral wall mid to apical segment reversible defect suggesting myocardial ischemia Started on Plavix, Imdur Heart cath 04/03 with indings as follows: 1. Left main; large and normal. 2. LAD; proximal diffuse 40% stenosis, then after diagonal takeoff, it become MEDICAL FILE CLERK. Diagonal has mid 70% stenosis. 3. Ramus intermedius has mid 70% stenosis. 4. Left circumflex; large vessel, 70% stenosis proximally and 90% mid to distal. 5. RCA; totally occluded ostial proximally. Bypass Graft Study: 1. Patent GEORGES to LAD. 2. Occluded SVG to RCA. 3. Occluded SVG to ramus. 4. Occluded SVG to left circumflex. 5. Elevated LVEDP at 15 mmHg. Plan for a PCI of the ramus left circumflex and the diagonal 1 branch on staged basis Plan is for staged cath on Friday 04/06 for intervention and will need additional staged cath at a later date outpatient Heart cath late in the day 04/06- PCI x2 Staged PCI in 6 weeks SALAZAR/CKD Atrophic kidneys on CT Suspect CKD although patient has no known history Continue gentle IV fluids Monitor chemistry daily- stable Nephrology-mucomyst (consulted given need for contrast with heart cath and planned staged heart cath Saturday) Hypertension Hyperlipidemia Home medications continued DVT PPX: Heparin subcu Code status: Full
--- NOTE | 2024-04-06 20:57 | P.PN ---
Date of Service: 04/06/24 Vital Signs Temp Pulse Resp BP Pulse Ox 97.0 F 54 16 150/68 H 97 04/06/24 16:43 04/06/24 18:28 04/06/24 18:28 04/06/24 18:28 04/06/24 12:00 Medications Acetaminophen (Acetaminophen 325 Mg Tablet) 650 mg PO Q3HP PRN PRN Reason: TEMP > 101' F Allopurinol (Allopurinol 100 Mg Tab) 100 mg PO DAILY COUNTS INCLUDE 234 BEDS AT THE [facility] Last Admin: 04/06/24 08:18 Dose: Not Given Aspirin (Aspirin Ec 81 Mg Tab) 81 mg PO DAILY COUNTS INCLUDE 234 BEDS AT THE [facility] Last Admin: 04/06/24 08:15 Dose: 81 mg Atorvastatin Calcium (Atorvastatin 40 Mg Tab) 40 mg PO BEDTIME COUNTS INCLUDE 234 BEDS AT THE [facility] Last Admin: 04/05/24 20:33 Dose: 40 mg Clopidogrel Bisulfate (Clopidogrel 75 Mg Tablet) 75 mg PO DAILY COUNTS INCLUDE 234 BEDS AT THE [facility] Last Admin: 04/06/24 08:18 Dose: Not Given Heparin Sodium (Porcine) (Heparin 5000 Unit/Ml 1 Ml Vial) 5,000 unit SQ Q12HR COUNTS INCLUDE 234 BEDS AT THE [facility] Last Admin: 04/06/24 08:18 Dose: Not Given Sodium Chloride (Ns 1000 Ml Ivbag) 1,000 mls @ 75 mls/hr IV .[id number] COUNTS INCLUDE 234 BEDS AT THE [facility] Last Admin: 04/06/24 06:20 Dose: Not Given Isosorbide Mononitrate (Isosorbide [place] Sr 30 Mg Tab) 30 mg PO DAILY COUNTS INCLUDE 234 BEDS AT THE [facility] Last Admin: 04/06/24 08:18 Dose: Not Given Nitroglycerin (Nitroglycerin 0.4 Mg/Tab) 0.4 mg SL UD PRN PRN Reason: Pain scale 2-4 (Mild) Ranolazine (Ranolazine 500 Mg Tab) 500 mg PO BID COUNTS INCLUDE 234 BEDS AT THE [facility] Last Admin: 04/06/24 08:14 Dose: 500 mg Tamsulosin HCl (Tamsulosin 0.4 Mg Sr Cap) 0.4 mg PO BEDTIME COUNTS INCLUDE 234 BEDS AT THE [facility] Last Admin: 04/05/24 20:34 Dose: 0.4 mg Temazepam (Temazepam 15 Mg Cap) 30 mg PO BEDTIME PRN PRN PRN Reason: INSOMNIA Last Admin: 04/05/24 22:26 Dose: 30 mg Assessment/ Plan: Nephrology No dyspnea No chest pain Back pain No acute events overnight Vitals, medications, blood work and imaging reviewed in the chart NAD. MMM. NCAT. Normal Respiratory Effort. S1S2. ND Abd. No C/C/E. No rash. AAO. Normal speech. Brown light Stage I SALAZAR CKD III -No NSAIDs -Change IVF to LR Hypophosphatemia -Replete prn -Encourage nutrition HTN with CKD -Continue Imdur Anemia in chronic illness -Monitor H&H BPH with LUTS -Continue tamsulosin Hospitalist and Cardiology notes reviewed
[2024-04-06] MEDS: Ringers Lactate 1,000 ML IV SCH (21:00)
--- NOTE | 2024-04-06 21:22 | PN ---
Date of Progress Note: 04/06/2024 Subjective: Seen at bedside. Continues to have chest pain on and off with activities. No shortness of breath. No nausea, vomiting, diarrhea. No abdominal pain. All other systems reviewed and negat mayra. Physical Examination: Vital Signs: Reviewed. Head and Neck: Pupils are equal, reactive to light. Intact eye movements. No JVD. No cervical lym phadenopathy. Neck: Supple. Thyroid is not enlarged. Lungs: Clear to auscultation bilaterally. No rhonchi, rales, or crackles. No accessory muscle use. Heart: Regular rate and rhythm. No extra sounds. Abdomen: Soft, nontender. Bowel sounds positive. No organomegaly. No masses or hernia. No rigidi ty or rebound. Extremities: No edema, clubbing, cyanosis. Intact pulses. Skin: No rashes. Neurologic: Alert, awake, oriented x3. No acute focal deficits appreciated. Investigation: Labs reviewed. Assessment And Recommendation: 1.Coronary artery disease with chest pain. Severe left circumflex stenosis, ramus intermedius, and diagonal branch. We will plan for percutaneous coronary intervention of the ramus and the circumflex today, and staged diagonal to be done at a later time. Continue aspirin, Plavix, and statin. 2.Dyslipidemia. Continue Lipitor 40 mg q.h.s. 3.Chronic renal failure. His creatinine has improved. We will plan for coronary angiogram today an d percutaneous coronary intervention as above. 4.Hypertension. Blood pressure controlled. Continue current management. /CARMEN Voice ID: [id number] Report ID: [id number]
[2024-04-07 01:29] VITALS: O2SAT 94
[2024-04-07 04:41] VITALS: TEMP 98.4
[2024-04-07 04:42] LABS: Albumin 3.1 g/dL (3.4-5.0); Anion Gap 9.7 mEq/L (5.0-15.0); Bilirubin Total 0.9 mg/dL (0.2-1.0); Globulin 3.2 g/dL (2.3-3.5); Phosphorus 2.4 mg/dL (2.5-4.9); Potassium 3.7 mEq/L (3.5-5.1); Protein, Total 6.3 g/dL (6.4-8.2); Uric Acid 4.6 mg/dL (3.5-7.2)
[2024-04-07 08:23] VITALS: BP 123/63
[2024-04-07] MEDS: POTASSIUM CL SA 10 MEQ TAB PO ONE (09:14)
--- NOTE | 2024-04-07 09:16 | P.DS ---
Admission Date: 04/02/24 Discharge Date: 04/07/24 Disposition: ROUTINE DISCHARGE Discharge Condition: GOOD Reason for Admission: Chest pain Brief History of Present Illness: Diagnosis Chest pain rule out ACS history of CAD with previous CABG-2011 SALAZAR/CKD Hypertension Hyperlipidemia Gout HPI 03/31/24 Aaron Thomas is an 83-year-old male with history of CAD previous four-vessel CABG in 2011, hypertension, gout presents emergency department chief complaint of chest pain. He reports an episode of chest pain on 03/29 that occurred at rest described as sharp/stabbing nonradiating that lasted for 5 to 10 minutes, this morning he had other episode while at rest that lasted 15 to 20 minutes and was more severe in nature associated with some "clamminess". He denies any shortness of breath, palpitations, nausea, vomiting or syncope. He had a four- vessel CABG in 2011 and has not had any further cardiac evaluation since then, he moved to this area about 1 year ago. Patient was evaluated in the emergency department initial high sensitive troponin normal 5.9, creatinine 1.75, no labs available for comparison unsure baseline although CT does show mild to moderate bilateral renal atrophy. ED provider wishes to be patient under observation for ACS rule out. Hospital Course: Aaron Thomas is a pleasant 83 year old male with a past medical history significant for CAD previous four-vessel CABG in 2011, hypertension, gout who was admitted to the [facility] on chest pain for 03/31/24. Aaron Thomas presented to the ED with sharp/stabbing nonradiating chest pain. Cardiology was consulted and a heart catheterization was performed 04/06 with two stents placed. An additional heart catheterization will be needed in six weeks. Please follow up with Dr. Hills in one week for close management and scheduling of additional procedures. He is tolerating p.o. diet, ambulating independently, urinating without difficulty, and tolerated heart catheterization procedure well. He is hemodynamically stable and ready for discharge On 04/07/2024, Aaron was seen on morning rounds and deemed medically stable for discharge. Aaron was discharged with instructions to schedule follow-up appointments with PCP and Dr. Hills. Aaron was provided prescriptions for aspirin, Imdur, Plavix. The patient and family members were given the opportunity to ask questions and reported no further questions. Furthermore, all questions were answered to the best of my ability. A copy of this discharge summary will be sent to the above providers to facilitate continuity of care. Physical exam GEN: Alert and oriented x3, NAD, conversing well HEENT: Normal conjunctiva, sclera anicteric CV: RRR, normal S1-S2, no edema Pulm: Nonlabored respirations, symmetrical chest wall movement, on room air ABD: Soft and benign on palpation, nontender/nondistended, normal active bowel sounds MSK: No joint tenderness Integumentary: No rashes Neuro: Normal speech, normal affect Vital Signs/Physical Exam: Temp Pulse Resp BP Pulse Ox 98.4 F 67 16 123/63 97 04/07/24 08:00 04/07/24 08:00 04/07/24 08:00 04/07/24 08:00 04/07/24 08:00 Laboratory Data at Discharge: WBC 6.00 thou/uL (4.3-10.9) 04/06/24 08:44 Hgb 12.0 g/dL (13.6-17.9) L 04/06/24 08:44 Hct 34.5 % (39.6-49.0) L 04/06/24 08:44 Plt Count 146 thou/uL (152-406) L 04/06/24 08:44 PT 11.6 SECONDS (9.4-12.5) 04/06/24 09:53 INR 1.06 04/06/24 09:53 APTT 32.1 SECONDS (24.3-36.9) 04/06/24 09:53 Sodium 139 mEq/L (136-145) 04/07/24 03:39 Potassium 3.7 mEq/L (3.5-5.1) 04/07/24 03:39 BUN 21 mg/dL (7-18) H 04/07/24 03:39 Creatinine 1.62 mg/dL (0.70-1.30) H 04/07/24 03:39 Glucose 99 mg/dL (74-106) 04/07/24 03:39 Uric Acid 4.6 mg/dL (3.5-7.2) 04/07/24 03:39 Phosphorus 2.4 mg/dL (2.5-4.9) L 04/07/24 03:39 Magnesium 1.7 mg/dL (1.6-2.4) 04/06/24 08:44 Total Bilirubin 0.9 mg/dL (0.2-1.0) 04/07/24 03:39 AST 18 U/L (15-37) 04/07/24 03:39 ALT 27 U/L (16-61) 04/07/24 03:39 Alkaline Phosphatase 113 U/L (45-117) 04/07/24 03:39 Triglycerides 170 mg/dL (<150) H 04/01/24 02:09 Cholesterol 103 mg/dL (<200) 04/01/24 02:09 HDL Cholesterol 37 mg/dL (40-60) L 04/01/24 02:09 Cholesterol/HDL Ratio 2.78 04/01/24 02:09 Home Medications: Atorvastatin Calcium 40 mg PO DAILY 03/31/24 Ranolazine [Ranolazine ER] 500 mg PO BID* 03/31/24 Tamsulosin HCl [Flomax] 0.4 mg PO DAILY 03/31/24 Temazepam 30 mg PO DAILY 03/31/24 allopurinoL [Allopurinol] 100 mg PO DAILY 03/31/24 Aspirin [Aspirin EC 81 MG] 81 mg PO DAILY 30 Days #30 tab 04/07/24 Clopidogrel Bisulfate [Plavix*] 75 mg PO DAILY 30 Days #30 tab 04/07/24 Isosorbide Mononitrate [Isosorbide Mononitrate ER] 30 mg PO DAILY 30 Days #30 tab 04/07/24 allopurinoL [Zyloprim*] 100 mg PO DAILY tab 04/07/24 New Medications: Aspirin [Aspirin EC 81 MG] 81 mg PO DAILY 30 Days #30 tab Isosorbide Mononitrate [Isosorbide Mononitrate ER] 30 mg PO DAILY 30 Days #30 tab Clopidogrel Bisulfate [Plavix*] 75 mg PO DAILY 30 Days #30 tab Physician Discharge Instructions: Aaron Thomas presented to the ED with chest pain. A heart catheterization was performed 04/06 with two stents placed. An additional heart catheterization will be needed in six weeks. Please follow up with Dr. Hills in one week for close management and scheduling of additional procedures. 1. Please call and schedule a follow-up appointment with your PCP in 3-5 days - Please follow-up with your PCP for medication refills/adjustments 2. Please call and schedule a follow-up appointment with Dr. Hills in one week -will need another heart cath in six weeks, that will be scheduled at your one week appointment -Medications provided today will be managed by Dr. Hills, please review these with him at your visit. 3. Continue heart healthy diet 4. activity restrictions do not lift greater than 8 pounds 5. Return to the ED if symptoms worsen New medications Imdur 30 mg daily aspirin 81 mg daily plavix 75 mg daily Followup: Jonas Prieto MD [Primary Care Provider] - 1-2 Weeks Jethro Hills MD [ACTIVE - CAN ADMIT] - 1 Week
== END 2024-04-07 10:08 | disposition home or self-care (01) | DRG 322 ==
LOC: ER 13:49 → ERHOLD 16:10 → 2ND 04-01 11:24 → 4TH 04-01 12:55 → ERHOLD 04-01 12:57 → 2ND 04-01 15:38 → OBSVTOIN 04-02 11:23
PROVIDERS: ADMIT Hospitalist; ATTEND Internal Medicine
PROC: 027034Z Dilation of Coronary Artery, One Artery with Drug-eluting Intraluminal Device, Percutaneous Approach (ICD-10-PCS; principal; 2024-04-06)
PROC: 027035Z Dilation of Coronary Artery, One Artery with Two Drug-eluting Intraluminal Devices, Percutaneous Approach (ICD-10-PCS; 2024-04-06)
PROC: 4A023N7 Measurement of Cardiac Sampling and Pressure, Left Heart, Percutaneous Approach (ICD-10-PCS; 2024-04-06)
PROC: B2111ZZ Fluoroscopy of Multiple Coronary Arteries using Low Osmolar Contrast (ICD-10-PCS; 2024-04-06)
DX: I25.110 Atherosclerotic heart disease of native coronary artery with unstable angina pectoris (principal); N17.9 Acute kidney failure, unspecified; M10.9 Gout, unspecified; E78.5 Hyperlipidemia, unspecified; I12.9 Hypertensive chronic kidney disease with stage 1 through stage 4 chronic kidney disease, or unspecified chronic kidney disease; N18.30 Chronic kidney disease, stage 3 unspecified; D63.1 Anemia in chronic kidney disease; I95.9 Hypotension, unspecified; I42.8 Other cardiomyopathies; E83.39 Other disorders of phosphorus metabolism; N40.1 Benign prostatic hyperplasia with lower urinary tract symptoms; Z95.1 Presence of aortocoronary bypass graft; Z79.82 Long term (current) use of aspirin; Z79.02 Long term (current) use of antithrombotics/antiplatelets; Z79.899 Other long term (current) drug therapy
CPT/HCPCS: 36415; 71045; 71250; 74176; 76937; 78452; 80048; 80053; 80061; 83735; 83880; 84100; 84484; 84550; 85025; 85027; 85347; 85610; 85730; 92928; 93005; 93017; 93459; 99152; 99153; 99285; A9500; C1725; C1760; C1887; C1893; G0269; G0378; J0461; J1644; J2001; J2250; J2310; J2785; J3010; J7030; J7040; J7120; Q9966; Q9967

== ENCOUNTER 2024-07-17 11:56 | Day surgery (SDC) | payer OTHER ==
[2024-07-15 14:43] LABS: Absolute Basophils 0.1 K/uL (0-0.5); Absolute Eosinophils 0.3 K/uL (0-0.5); Absolute Lymphocytes (CBC) 1.5 K/uL (0.7-4.9); Absolute Monocytes 0.6 K/uL (0.1-1.3); Absolute Neutrophil 3.8 K/uL (1.8-8.0); Eosinophils % 4.3 % (0-4.4); Hematocrit 47.2 % (39.6-49.0); Hemoglobin 16.1 g/dL (13.6-17.9); Lymphocytes % 23.8 % (15.3-44.8); MCH 34.3 pg (27.0-35.0); MCHC 34.1 g/dL (32.0-36.0); MCV 100.4 fL (80-100); MPV 7.6 fL (7.6-11.3); Monocytes % 9.9 % (3.3-12.3); Platelets 187 thou/uL (152-406); Red Cell Distribution Width 13.4 % (12.1-15.2)
[2024-07-15 14:49] LABS: PT Prothrombin Time 11.3 SECONDS (9.4-12.5); PTT, Activated Partial Thromb 31.8 SECONDS (24.3-36.9); Protime INR 1.01
[2024-07-15 15:00] LABS: Anion Gap 6.7 mEq/L (5.0-15.0); Potassium 4.7 mEq/L (3.5-5.1)
[2024-07-17] MEDS ORDERED: NA CHLORIDE 0.9% 500 ML ONE (11:57)
[2024-07-17 12:34] VITALS: TEMP 98
[2024-07-17] MEDS ORDERED: ATROPINE SULF 1 MG/10 ML SYR IV ONE (14:08)
[2024-07-17] MEDS ORDERED: HEPARIN 10,000 UNIT/10 ML VIAL IV ONE (14:08)
[2024-07-17] MEDS ORDERED: CLOPIDOGREL 75 MG TABLET ONE (14:08)
[2024-07-17] MEDS ORDERED: LIDOCAINE 1% 20 ML MDV ONE (14:08)
[2024-07-17] MEDS ORDERED: HEPA 1000U/500MLS 3,000 UNIT/1,500 ML BAG IV ONE (14:08)
[2024-07-17] MEDS ORDERED: TICAGRELOR 90 MG TABLET PO ONE (14:09)
[2024-07-17] MEDS ORDERED: ASPIRIN 325 MG TAB ONE (14:09)
[2024-07-17] MEDS ORDERED: FENTANYL CITR 100 MCG/2 ML ONE (14:10)
[2024-07-17] MEDS ORDERED: MIDAZOLAM HCL 2 MG/2 ML INJ ONE (14:11)
[2024-07-17] MEDS ORDERED: HEPA 1000U/500MLS 1,000 UNIT/500 ML BAG IV ONE (15:16)
--- NOTE | 2024-07-17 16:41 | EKG ---
Test Date: 2024-07-15 Test Time: 14:21:59 Director Women: NELSON MEASUREMENT RESULTS: Intervals: Rate: 63 AL: 226 QRSD: 88 QT: 402 QTc: 411 [place]: P: 26 AL: 226 QRS: 9 T: 87 INTERPRETIVE STATEMENTS: Sinus rhythm with 1st degree AV block Low voltage QRS Cannot rule out Anterior infarct, age undetermined Abnormal ECG Compared to ECG 03/31/2024 14:06:52 Low QRS voltage now present Myocardial infarct finding now present Sinus bradycardia no longer present Electronically Signed On 07-17-24 16:34:21 CDT by Jethro Hills
[2024-07-17] MEDS: NITROGLYCERIN 0.4 MG/TAB SL PRN (17:09)
[2024-07-17 18:14] VITALS: BP 107/63; O2SAT 97
--- NOTE | 2024-07-20 12:00 | EKG ---
Test Date: 2024-07-17 Test Time: 17:16:01 Transaction Processor: TORREY MEASUREMENT RESULTS: Intervals: Rate: 61 TX: 212 QRSD: 86 QT: 436 QTc: 438 [place]: P: 47 TX: 212 QRS: -7 T: 63 INTERPRETIVE STATEMENTS: Sinus rhythm with 1st degree AV block Inferior infarct, age undetermined Abnormal ECG Compared to ECG 07/15/2024 14:21:59 No significant changes Electronically Signed On 07-20-24 11:54:39 CDT by Javier Benton
--- NOTE | 2024-07-21 02:24 | OP ---
Date of Procedure: 07/17/2024 Surgeon: ARMANDO RICHARDSON Procedure Performed: Selective coronary angiogram with bypass graft study. Indication: Chest pain with abnormal stress test. Access: Right common femoral artery 6-Togolese, closed with Mynx closure device. Description Of Procedure: After risks, benefits, and alternatives were explained, the patient agreed to procedure and signed informed consent. The patient was brought into the cardiac catheterization laboratory, prepped and draped in sterile fashion. Then, I accessed right common femoral artery usin g micropuncture kit, ultrasound guidance, fluoroscopy, and took a 6-Togolese JL4 catheter into aortic r oot, engaged left main, took standard views, and then exchanged for 6-Togolese JR4 catheter, engaged th e RCA, took standard views, and then same catheter was used to engage the GEORGES and took standard view s and then removed the catheter and the sheath, and 6-Togolese Mynx closure device was used for closure with good hemostasis. The patient was sent to recovery in stable condition. Complications: None. Bleeding: Less than 50 mL. Anesthesia: Total sedation time was 50 minutes. Findings: 1.Left main is normal. 2.LAD; proximal 40% and then after the takeoff of diagonal becomes 100% occluded and diagonal 1 has 60% to 70% stenosis, but it is a smaller vessel. 3.Ramus that is large with widely patent stent. 4.Left circumflex, patent stent from left circumflex to the OM, widely patent. Rest of the left cir cumflex is normal. 5.RCA, it has SERVICE SPRINKLER HELPER proximally with collaterals from the LAD. Conclusion: Coronary artery disease as outlined above; however, heart is well vascularized. Recommendation: Medical management. SR/MODL Voice ID: [id number] Report ID: [id number]
== END 2024-07-17 18:00 | disposition home or self-care (01) ==
LOC: PRE 11:56 → CCL 18:00
PROVIDERS: ATTEND Internal Medicine
DX: I25.10 Atherosclerotic heart disease of native coronary artery without angina pectoris (principal); I25.82 Chronic total occlusion of coronary artery; I73.9 Peripheral vascular disease, unspecified; E78.5 Hyperlipidemia, unspecified; Z95.5 Presence of coronary angioplasty implant and graft; Z79.82 Long term (current) use of aspirin; Z79.02 Long term (current) use of antithrombotics/antiplatelets; Z79.899 Other long term (current) drug therapy; Z82.49 Family history of ischemic heart disease and other diseases of the circulatory system
CPT/HCPCS: 93005 ×2; 85025; 80048; 36415; 85610; 85730; 93455; 76937; C1893; Q9966; J2001; J2250; J3010; J7040; 93459; 99152; 99153; J0461

== ENCOUNTER 2024-08-08 00:14 | Emergency (ER) | payer OTHER ==
[2024-08-08] MEDS ORDERED: ONDANSETRON 4 MG/2 ML VIAL ONE (01:00)
[2024-08-08] MEDS ORDERED: NA CHLORIDE 0.9% 1,000 ML ONE (01:01)
[2024-08-08] MEDS ORDERED: MORPHINE 4 MG/ML SYR ONE (01:01)
[2024-08-08 01:19] LABS: Absolute Basophils 0.2 K/uL (0-0.5); Absolute Eosinophils 0.1 K/uL (0-0.5); Absolute Lymphocytes (CBC) 0.6 K/uL (0.7-4.9); Absolute Monocytes 0.7 K/uL (0.1-1.3); Absolute Neutrophil 7.9 K/uL (1.8-8.0); Basophils % 1.8 % (0-1.3); Eosinophils % 1.3 % (0-4.4); Hematocrit 46.7 % (39.6-49.0); Hemoglobin 16.3 g/dL (13.6-17.9); Lymphocytes % 6.3 % (15.3-44.8); MCV 97.1 fL (80-100); MPV 7.9 fL (7.6-11.3); Monocytes % 7.8 % (3.3-12.3); Neutrophils % 82.8 % (41.7-73.7); Platelets 244 thou/uL (152-406); RBC Red Blood Cell Count 4.81 M/uL (4.33-5.43); Red Cell Distribution Width 13.3 % (12.1-15.2)
[2024-08-08 01:46] LABS: Specific Gravity 1.017 (1.005-1.030); Sqamous Epithelial <5 /HPF (None Seen); Urine Bacteria None Seen /HPF (<20); Urine Bilirubin NEGATIVE (Negative); Urine Blood Negative (Negative); Urine Clarity Turbid (Clear); Urine Color Yellow (Yellow); Urine Crystals Unidentified Few /HPF (None Seen); Urine Culture Reflex Order NOT NEEDED; Urine Glucose 4+ (Over) (Negative); Urine Ketones NEGATIVE (Negative); Urine Microscopic Reflex YN ORDER UMIC; Urine Nitrite NEGATIVE (Negative); Urine Protein 1+ (Negative); Urine RBC <5 /HPF (None Seen); Urine Urobilinogen 1+ (Normal); Urine WBC <5 /HPF (<5); Urine pH 6.5 (5.0-7.0)
[2024-08-08 02:08] LABS: ALT/SGPT 797 U/L (16-61); AST/SGOT 538 U/L (15-37); Albumin 3.1 g/dL (3.4-5.0); Albumin/Globulin Ratio 0.6 (1.1-1.8); Alkaline Phosphatase 959 U/L (45-117); Anion Gap 10.9 mEq/L (5.0-15.0); BUN Blood Urea Nitrogen 31 mg/dL (7-18); Bicarbonate 24 mEq/L (21-32); Bilirubin Total 4.4 mg/dL (0.2-1.0); Globulin 4.8 g/dL (2.3-3.5); Glomerular Filtration Rate 31 ml/min (=/>90); Glucose Level 131 mg/dL (74-106); Potassium 3.9 mEq/L (3.5-5.1); Protein, Total 7.9 g/dL (6.4-8.2); Sodium Level 139 mEq/L (136-145); Troponin High Sensitivity 10.6 pg/mL (<58.9)
[2024-08-08 02:35] LABS: Lipase > 5000 U/L (13-75)
--- NOTE | 2024-08-08 03:45 | ER ---
Nurse's Notes [facility] Name: Aaron Thomas Age: 83 yrs Sex: Male : 1940 Arrival Date: 08/08/2024 Time: 00:14 Bed 13 Private MD: Diagnosis: Acute pancreatitis;Transaminitis;Hyperbilirubinemia;Left 10th and 11th rib fractures Presentation: 08/08 00:25 Chief complaint: Patient states: I have been throwing up and having abd pain for a bm8 week, and I just cant seem to shake it. Coronavirus screen: At this time, the client does not indicate any symptoms associated with coronavirus-19. Ebola Screen: Patient negative for fever greater than or equal to 101.5 degrees Fahrenheit, and additional compatible Ebola Virus Disease symptoms Patient denies exposure to infectious person. Patient denies travel to an Ebola-affected area in the 21 days before illness onset. No symptoms or risks identified at this time. Initial Sepsis Screen: Does the patient meet any 2 criteria? No. Patient's initial sepsis screen is negative. Does the patient have a suspected source of infection? No. Patient's initial sepsis screen is negative. Risk Assessment: Do you want to hurt yourself or someone else? Patient reports no desire to harm self or others. Onset of symptoms was August 01, 2024. 00:25 Method Of Arrival: Wheelchair bm8 00:25 Acuity: MAYCOL 3 bm8 Triage Assessment: 00:41 General: Appears in no apparent distress. uncomfortable, Behavior is calm, cooperative, bm8 appropriate for age. Pain: Complains of pain in abdomen Pain does not radiate. Pain currently is 8 out of 10 on a pain scale. Quality of pain is described as aching. EENT: No signs and/or symptoms were reported regarding the EENT system. Neuro: No deficits noted. Level of Consciousness is awake, alert, obeys commands, Oriented to person, place, time, situation, Appropriate for age. Cardiovascular: Denies chest pain, Heart tones S1 S2 present Capillary refill < 3 seconds in bilateral fingers Patient's skin is warm and dry. Respiratory: Airway is patent Respiratory effort is even, unlabored, Respiratory pattern is regular, symmetrical, Breath sounds are clear bilaterally. GI: Abdomen is round non-distended, Bowel sounds hyperactive in right upper quadrant and left upper quadrant Abdomen is tender to palpation in right upper quadrant, left upper quadrant, right lower quadrant and left lower quadrant Reports lower abdominal pain, upper abdominal pain, nausea, Pain is 8 out of 10 on a pain scale. vomiting. : No signs and/or symptoms were reported regarding the genitourinary system. Urine is clear. Derm: No signs and/or symptoms reported regarding the dermatologic system. Musculoskeletal: No signs and/or symptoms reported regarding the musculoskeletal system. 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 - Infectious Disease History:: Denies. - Social history:: Smoking status: Patient denies any tobacco usage or history of. - Family history:: not pertinent. Screenin:44 [facility] ED Fall Risk Assessment (Adult) History of falling in the last 3 months, bm8 including since admission Yes- physiologic fall (2 pts) Confusion or Disorientation No (0 pts) Intoxicated or Sedated No (0 pts) Impaired Gait Yes (1 pt) Mobility Assist Device Used Yes (1 pt) Altered Elimination No (0 pt) Score/Fall Risk Level 3 or more points = High Risk Oriented to surroundings, Maintained a safe environment, Educated pt \T\ family on fall prevention, incl call for assistance when getting out of bed, Assessed \T\ reinforced patient's understanding of fall precautions, Provided non-skid footwear, Hourly rounding (assess needs \T\ fall precautionary measures) done, Used ambulatory aids as needed (educated on \T\ assisted with), Used gait belt as appropriate Implemented a Fall Risk Plan of Care. Abuse screen: Denies threats or abuse. Nutritional screening: No deficits noted. Tuberculosis screening: No symptoms or risk factors identified. Assessment: 00:44 Reassessment: see triage assessment. bm8 03:33 Reassessment: Patient appears in no apparent distress at this time. Patient and/or bm8 family updated on plan of care and expected duration. Pain level reassessed. Patient is alert, oriented x 3, equal unlabored respirations, skin warm/dry/pink. Patient states feeling better. Patient states symptoms have improved. Pain: Pain currently is 5 out of 10 on a pain scale. Neuro: No deficits noted. Level of Consciousness is awake, alert, obeys commands, Oriented to person, place, time, situation, Appropriate for age. Cardiovascular: Denies chest pain, Capillary refill < 3 seconds in bilateral fingers Patient's skin is warm and dry. Respiratory: Airway is patent Trachea midline Respiratory effort is even, unlabored, Respiratory pattern is regular, symmetrical, Breath sounds are clear bilaterally. GI: Abdomen is round non-distended, Bowel sounds present X 4 quads. Reports upper abdominal pain. : No signs and/or symptoms were reported regarding the genitourinary system. EENT: No signs and/or symptoms were reported regarding the EENT system. Derm: No signs and/or symptoms reported regarding the dermatologic system. Musculoskeletal: No signs and/or symptoms reported regarding the musculoskeletal system. 04:47 Reassessment: Patient appears in no apparent distress at this time. No changes from bm8 previously documented assessment. Patient and/or family updated on plan of care and expected duration. Pain level reassessed. Patient is alert, oriented x 3, equal unlabored respirations, skin warm/dry/pink. provided mouth moisteners Patient denies pain at this time. Patient states feeling better. Patient states symptoms have improved. 04:52 Reassessment: attempted to call report, , no answer. bm8 06:05 Reassessment: Patient appears in no apparent distress at this time. Patient and/or 8 family updated on plan of care and expected duration. Pain level reassessed. Patient is alert, oriented x 3, equal unlabored respirations, skin warm/dry/pink. Patient denies pain at this time. Patient states feeling better. Patient states symptoms have improved. Vital Signs: 00:25 BP 162 / 107; Pulse 92; Resp 18; Temp 98.2; Pulse Ox 97% on R/A; Weight 91.63 kg; bm8 Height 5 ft. 9 in. ; Pain 8/10; 01:08 BP 148 / 85; Pulse 86; Resp 17; Temp 98.2; Pulse Ox 92% on R/A; Pain 8/10; bm8 03:33 BP 116 / 75; Pulse 75; Resp 17; Temp 98.2; Pulse Ox 97% on R/A; Pain 5/10; bm8 04:47 BP 116 / 78; Pulse 72; Resp 18; Temp 98.2; Pulse Ox 99% on R/A; Pain 0/10; bm8 06:05 BP 137 / 80; Pulse 81; Resp 17; Temp 98.2; Pulse Ox 99% ; Pain 0/10; bm8 00:25 Body Mass Index 29.83 (91.63 kg, 175.26 cm) bm8 00:25 Pain Scale: Adult bm8 01:08 Pain Scale: Adult bm8 03:33 Pain Scale: Adult bm8 04:47 Pain Scale: Adult bm8 06:05 Pain Scale: Adult bm8 [place] Coma Score: 00:44 Eye Response: spontaneous(4). Motor Response: obeys commands(6). Verbal Response: bm8 oriented(5). Total: 15. 01:08 Eye Response: spontaneous(4). Motor Response: obeys commands(6). Verbal Response: bm8 oriented(5). Total: 15. 03:33 Eye Response: spontaneous(4). Motor Response: obeys commands(6). Verbal Response: bm8 oriented(5). Total: 15. 04:47 Eye Response: spontaneous(4). Motor Response: obeys commands(6). Verbal Response: bm8 oriented(5). Total: 15. 06:05 Eye Response: spontaneous(4). Motor Response: obeys commands(6). Verbal Response: bm8 oriented(5). Total: 15. ED Course: 00:17 Patient arrived in ED. gm2 00:18 Arsen Devi MD is Attending Physician. rt 00:39 Hola Sloan, RN is Primary Nurse. bm8 00:41 Triage completed. bm8 00:41 Arm band placed on right wrist. bm8 00:44 Patient has correct armband on for positive identification. Placed in gown. Bed in low bm8 position. Call light in reach. Side rails up X 1. Adult w/ patient. Client placed on continuous cardiac and pulse oximetry monitoring. NIBP monitoring applied. potline monitor on. Pulse ox on. NIBP on. Door closed. Noise minimized. Warm blanket given. Pillow given. Verbal reassurance given. Head of bed. 00:44 No provider procedures requiring assistance completed. Initial lab(s) drawn, by me, bm8 sent to lab. Urine collected: clean catch specimen, clear. Inserted saline lock: 20 gauge in right forearm, using aseptic technique. Blood collected. Flushed with 10 mL NS. 01:08 EKG done, by ED staff, reviewed by Arsen Devi MD. Patient maintains SpO2 bm8 saturation greater than 95% on room air. 03:08 Chest Abd Pelvis Wo Con In Process Unspecified. EDMS 03:45 initiated transfer with Adriana \T\ [facility]. kmf 04:52 pt was accepted to [facility] room [address] Ida Heredia \T\ [id number]. Number for nurse kmf to nurse report [phone]. Admin approval given by Adriana Huber \Nena\[id number]. [facility] to transfer pt. 05:13 awaiting nurse to nurse report sheet to call EMS. kmf 06:05 Provided Education on: need for transfer. bm8 06:05 Patient transferred, IV remains in place. bm8 Administered Medications: 01:07 Drug: Ondansetron IVP 4 mg IVP once; over 2 minutes Route: IVP; Site: right forearm; bm8 01:43 Follow up: Response: No adverse reaction bm8 01:07 Drug: morphine IVP or IV 2 mg IVP once over 4 mins Route: IVP; Infused Over: 4 mins; bm8 Site: right forearm; 01:43 Follow up: Response: No adverse reaction bm8 01:07 Drug: NS 0.9% IV 500 ml IV at 500 bolus Per protocol; to be given as a bolus over 60 bm8 minutes Route: IV; Rate: 500 bolus; Site: right forearm; 01:43 Follow up: Response: No adverse reaction; IV Status: Completed infusion; IV Intake: bm8 500ml Medication: 00:44 VIS not applicable for this client. bm8 Intake: 01:43 IV: 500ml; Total: 500ml. bm8 Outcome: 03:45 ER care complete, transfer ordered by . rt 06:05 Transferred by ground EMS to [facility], Transfer form completed. bm8 X-rays sent w/ patient. 06:05 Condition: stable 06:05 Instructed on discharge instructions, follow up and referral plans. Demonstrated understanding of instructions, follow-up care, medications, 06:08 Patient left the ED. bm8 Signatures: Dispatcher [employer] EDArsen Graham MD MD rt Mitchell, Ginger 2 Jenifer Marvin Brad RN RN bm8
--- NOTE | 2024-08-08 03:45 | EDPHYS ---
Physician Documentation [facility] Name: Aaron Thomas Age: 83 yrs Sex: Male : 1940 Arrival Date: 08/08/2024 Time: 00:14 Bed 13 Private MD: ED Physician Arsen Devi HPI: 08/08 03:45 This 83 yrs old Male presents to ER via Wheelchair with complaints of Nausea/Vomiting, rt Fall Injury. 03:45 Patient presents to the ED with an epigastric abdominal pain with nausea and vomiting rt for about a week that has been persistent. Patient states that about 2 weeks ago, he had a fall landing onto his left side and is complaining of pain to the ribs. Denies other acute complaints at this time, symptoms are moderate in severity, no other aggravating or alleviating factors.. 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 - Infectious Disease History:: Denies. - Social history:: Smoking status: Patient denies any tobacco usage or history of. - Family history:: not pertinent. ROS: 03:45 Constitutional: Negative for fever, chills, and weight loss, Cardiovascular: Negative rt for chest pain, palpitations, and edema, Respiratory: Negative for shortness of breath, cough, wheezing, and pleuritic chest pain, MS/Extremity: Negative for injury and deformity, Skin: Negative for injury, rash, and discoloration, Neuro: Negative for headache, weakness, numbness, tingling, and seizure, 03:45 Abdomen/GI: Positive for abdominal pain, nausea and vomiting, Exam: 03:45 Constitutional: This is a well developed, well nourished patient who is awake, alert, rt and in no acute distress. Head/Face: Normocephalic, atraumatic. Chest/axilla: Normal chest wall appearance and motion. Nontender with no deformity. No lesions are appreciated. Cardiovascular: Regular rate and rhythm with a normal S1 and S2. No gallops, murmurs, or rubs. Normal PMI, no JVD. No pulse deficits. Respiratory: Lungs have equal breath sounds bilaterally, clear to auscultation and percussion. No rales, rhonchi or wheezes noted. No increased work of breathing, no retractions or nasal flaring. Skin: Warm, dry with normal turgor. Normal color with no rashes, no lesions, and no evidence of cellulitis. MS/ Extremity: Pulses equal, no cyanosis. Neurovascular intact. Full, normal range of motion. Neuro: Awake and alert, GCS 15, oriented to person, place, time, and situation. Cranial nerves II-XII grossly intact. Motor strength 5/5 in all extremities. Sensory grossly intact. Cerebellar exam normal. Normal gait. 03:45 ECG was reviewed by the Attending Physician. 03:45 Abdomen/GI: Tenderness to the epigastrium with mild guarding, no rebound, distention, Vital Signs: 00:25 BP 162 / 107; Pulse 92; Resp 18; Temp 98.2; Pulse Ox 97% on R/A; Weight 91.63 kg; bm8 Height 5 ft. 9 in. ; Pain 8/10; 01:08 BP 148 / 85; Pulse 86; Resp 17; Temp 98.2; Pulse Ox 92% on R/A; Pain 8/10; bm8 03:33 BP 116 / 75; Pulse 75; Resp 17; Temp 98.2; Pulse Ox 97% on R/A; Pain 5/10; bm8 04:47 BP 116 / 78; Pulse 72; Resp 18; Temp 98.2; Pulse Ox 99% on R/A; Pain 0/10; bm8 06:05 BP 137 / 80; Pulse 81; Resp 17; Temp 98.2; Pulse Ox 99% ; Pain 0/10; bm8 00:25 Body Mass Index 29.83 (91.63 kg, 175.26 cm) bm8 00:25 Pain Scale: Adult bm8 01:08 Pain Scale: Adult bm8 03:33 Pain Scale: Adult bm8 04:47 Pain Scale: Adult bm8 06:05 Pain Scale: Adult bm8 [place] Score: 00:44 Eye Response: spontaneous(4). Motor Response: obeys commands(6). Verbal Response: bm8 oriented(5). Total: 15. 01:08 Eye Response: spontaneous(4). Motor Response: obeys commands(6). Verbal Response: bm8 oriented(5). Total: 15. 03:33 Eye Response: spontaneous(4). Motor Response: obeys commands(6). Verbal Response: bm8 oriented(5). Total: 15. 04:47 Eye Response: spontaneous(4). Motor Response: obeys commands(6). Verbal Response: bm8 oriented(5). Total: 15. 06:05 Eye Response: spontaneous(4). Motor Response: obeys commands(6). Verbal Response: bm8 oriented(5). Total: 15. MDM: 00:40 Medical Screening Exam initiated rt 03:45 Differential diagnosis: Pancreatitis, transaminitis, constipation, cholangiocarcinoma, rt gallstone. Data reviewed: vital signs, nurses notes, lab test result(s), EKG, radiologic studies. Consideration of Admission/Observation Escalation of care including admission/observation considered. Patient requires transfer for GI coverage. I considered the following discharge prescriptions or medication management in the emergency department Medications were administered in the Emergency Department. See MAR. 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 Care significantly affected by the following chronic conditions: Hypertension. Counseling: I had a detailed discussion with the patient and/or guardian regarding the historical points, exam findings, and any diagnostic results supporting the discharge/admit diagnosis, lab results, radiology results, the need to transfer to another facility. Response to treatment: the patient's symptoms have mildly improved after treatment. 08/08 00:56 Order name: CBC with Diff; Complete Time: 02:09 rt 08/08 00:56 Order name: CMP; Complete Time: 02:36 rt 08/08 00:56 Order name: Lipase; Complete Time: 02:36 rt 08/08 00:56 Order name: Urinalysis w/ reflexes; Complete Time: 02:09 rt 08/08 00:56 Order name: Troponin High Sensitivity; Complete Time: 02:36 rt 08/08 01:09 Order name: Magnesium; Complete Time: 02:09 rt 08/08 03:08 Order name: Chest Abd Pelvis Wo Con EDMS 08/08 00:56 Order name: EKG; Complete Time: 00:56 rt 08/08 00:56 Order name: IV Saline Lock; Complete Time: 01:07 rt 08/08 00:56 Order name: Labs collected and sent; Complete Time: rt 08/08 00:56 Order name: EKG - Nurse/Tech; Complete Time: rt EC:45 Rate is 88 beats/min. Rhythm is regular, Normal Sinus Rhythm with No ectopy. Left axis rt deviation noted. MI interval is normal. QRS interval is normal. QT interval is prolonged. No Q waves. Administered Medications: : Drug: Ondansetron IVP 4 mg IVP once; over 2 minutes Route: IVP; Site: right forearm; bm8 :43 Follow up: Response: No adverse reaction bm8 01:07 Drug: morphine IVP or IV 2 mg IVP once over 4 mins Route: IVP; Infused Over: 4 mins; bm8 Site: right forearm; :43 Follow up: Response: No adverse reaction bm8 01:07 Drug: NS 0.9% IV 500 ml IV at 500 bolus Per protocol; to be given as a bolus over 60 bm8 minutes Route: IV; Rate: 500 bolus; Site: right forearm; :43 Follow up: Response: No adverse reaction; IV Status: Completed infusion; IV Intake: bm8 500ml Disposition Summary: 08/08/24 03:45 Transfer Ordered Notes: Transfer Location: [facility] rt Reason: Higher level of care rt Condition: Fair rt Problem: new rt Symptoms: have improved rt Accepting Physician: (08/08/24 06:08) bm8 Diagnosis - Acute pancreatitis rt - Transaminitis rt - Hyperbilirubinemia rt - Left 10th and 11th rib fractures rt Forms: - Medication Reconciliation Form rt - SBAR form rt Signatures: Dispatcher [employer] EDMS Arsen Devi MD MD rt Hola Sloan, RN RN bm8 Corrections: (The following items were deleted from the chart) 00:56 00:56 CBC+H.LAB.BRZ ordered. EDMS EDMS 00:56 00:56 COMPREHENSIVE METABOLIC PANEL+C.LAB.BRZ ordered. EDMS EDMS 00:56 00:56 LIPASE+C.LAB.BRZ ordered. EDMS EDMS 00:56 00:56 Urinalysis+U.LAB.BRZ ordered. EDMS EDMS 00:56 00:56 Troponin High Sensitivity+C.LAB.BRZ ordered. EDMS EDMS : 00:56 Chest Abdomen Pelvis W Con+CT.RAD.BRZ ordered. EDMS EDMS 06:08 03:45 Dr. buchanan bm8
--- NOTE | 2024-08-08 03:56 | RAD REPORT ---
EXAMINATION: CT CHEST ABDOMEN PELVIS WITHOUT IV CONTRAST INDICATION: Male, 83 years old, abd, lower rib pain COMPARISON(S): 03/31/2024 TECHNIQUE: CT acquisition of the chest, abdomen, and pelvis without contrast. Coronal and sagittal re formatted images provided. This exam was performed according to departmental dose-optimization program which includes automated exposure control, adjustment of the mA and/or kV according to patien t size, and/or use of iterative reconstruction technique. FINDINGS: SUPPORT DEVICES: None. Lack of intravenous contrast limits evaluation of the abdominal and pelvic viscera and vascular struc tures. CHEST: Vasculature: No noncontrast evidence of injury. Aortic and branch vessel atherosclerosis. Heart and Pericardium: Normal heart size. No pericardial effusion. Post-CABG change with dense athero sclerosis of the [place] coronary arteries. Mediastinum: No mediastinal hematoma. Lungs and Airways: No pulmonary contusion or laceration. Mild scarring/atelectasis. Pleural Space: No pneumothorax or hemothorax. ABDOMEN/PELVIS: Liver: No evidence of liver injury. Gallbladder/Biliary System: Postcholecystectomy changes with expected prominence of the bile ducts. Pancreas: No evidence of pancreatic injury. Soft tissue stranding within and surrounding the head and uncinate process from prior. Spleen: No evidence of splenic injury. Adrenals: Unremarkable. Kidneys and Ureters: No evidence of injury. Symmetric renal atrophy and senescent perinephric strandi ng. Bladder: No gross bladder contusion or obvious rupture. Reproductive Organs: Prostatomegaly. Vasculature: No noncontrast evidence of injury. Moderate atherosclerosis. Mesentery and Peritoneum: No hemoperitoneum or pneumoperitoneum. Bowel: Atraumatic appearance. THORACIC AND LUMBAR SPINE: Morphology: No acute fracture or compression deformity. Redemonstrated postsurgical change of L3-L5 p osterior fixation, intervertebral disc spacer placement, and posterior decompression without evidence of acute hardware complication. Alignment: No traumatic listhesis. Disc Levels: Moderate spondylosis of the nonsurgical levels. MUSCULOSKELETAL: Chest Wall: Acute fractures of left posterolateral ribs-11. Several chronic left rib fractures are pr esent. Uncomplicated sternotomy wires. Pelvis: No acute fracture. Proximal Appendicular Bones and Joints: No acute fracture or joint malalignment. Degenerative changes of the shoulders and hips. Muscles and Subcutaneous Tissues: No soft tissue injury. IMPRESSION: 1. No acute traumatic injury of the contents of the chest, abdomen, or pelvis. 2. Acute left 10th-11th rib fractures. 3. No acute thoracic or lumbar osseous abnormality, or evidence of lumbar hardware complication.. 4. Attention to nonemergent incidental findings: Proximal pancreatic parenchymal and surrounding so ft tissue stranding, correlate with pancreatic enzymes. Additional chronic and incidental findings above. Electronically signed by: Bhavin Tate MD 08/08/2024 03:16 AM CDT RP Due to temporary technical issues with the PACS/[employer] reporting system, reports are being naveen d by the in-house radiologist without review as a courtesy to ensure prompt reporting the interpreting radiologist is fully responsible for the content of the report. Transcribed Date/Time: 08/08/2024 3:56 AM
[2024-08-08 16:04] VITALS: TEMP 98.2
[2024-08-08 16:16] VITALS: O2SAT 99
[2024-08-08 16:18] VITALS: BP 137/80
--- NOTE | 2024-08-09 15:05 | EKG ---
Test Date: 2024-08-08 Test Time: 01:06:05 Cardiac Care Unit Nurse: AF MEASUREMENT RESULTS: Intervals: Rate: 88 MA: 178 QRSD: 98 QT: 406 QTc: 491 [place]: P: -21 MA: 178 QRS: -11 T: 53 INTERPRETIVE STATEMENTS: Poor data quality, interpretation may be adversely affected Sinus rhythm with occasional and consecutive premature ventricular complexes and fusion complexes Septal infarct, age undetermined Abnormal ECG Compared to ECG 07/17/2024 17:16:01 Fusion complex(es) now present Ventricular premature complex(es) now present First degree AV block no longer present Myocardial infarct finding still present Electronically Signed On 08-09-24 15:05:20 CDT by Javier Benton
--- NOTE | 2024-08-12 14:59 | EKG ---
Test Date: 2024-08-08 Test Time: 01:07:02 Flatbed Press Operator: ANA MEASUREMENT RESULTS: Intervals: Rate: 88 HI: 192 QRSD: 98 QT: 580 QTc: 701 [place]: P: 14 HI: 192 QRS: -12 T: 26 INTERPRETIVE STATEMENTS: Normal sinus rhythm Septal infarct, age undetermined Inferior infarct, age undetermined T wave abnormality, consider lateral ischemia Prolonged QT Abnormal ECG Compared to ECG 08/08/2024 01:06:05 T-wave abnormality now present Possible ischemia now present Prolonged QT interval now present Fusion complex(es) no longer present Ventricular premature complex(es) no longer present Myocardial infarct finding still present Electronically Signed On 08-12-24 14:49:13 CDT by Jethro Hills
== END 2024-08-08 06:08 | disposition short-term general hospital (02) ==
LOC: ER 00:14
DX: K85.90 Acute pancreatitis without necrosis or infection, unspecified (principal); E80.6 Other disorders of bilirubin metabolism; R74.01 Elevation of levels of liver transaminase levels; S22.42XA Multiple fractures of ribs, left side, initial encounter for closed fracture; W18.30XA Fall on same level, unspecified, initial encounter; Z95.1 Presence of aortocoronary bypass graft
CPT/HCPCS: 96361; 93005; 85025; 81001; 36415; 83735; 84484; 83690; 80053; 71250; 74176; 96375; 96374; 99285; J2405; J7030